=== PATIENT | female | born 1970 | race African-American/Black ===

== ENCOUNTER 2019-11-27 17:57 | Inpatient (IN) | payer OTHER, MEDICAID ==
[~2019-11-27] VITALS: Ht 165.1 cm; Wt 80.7 kg
[2019-11-27 18:05] VITALS: BP_SYST 138
--- NOTE | 2019-11-27 18:05 | NUR ---
PT BIB AMBULANCE FOR SEIZURE ACTIVITY TO DAY. PT HAS NO HISTORY OF SEIZURES. PT AAO AND SEIZURE-LIKE JERKING AND ROLLING HER EYES BACK. PT CURRENTLY DENIES PAIN.
--- NOTE | 2019-11-27 18:05 | NUR ---
Patient to ER bed 7 to gown for evaluation. Side rails up. ASSUMED CARE OF PT.
[2019-11-27] MEDS ORDERED: NACL 0.9% 1,000 ML IV ONE (18:10)
--- NOTE | 2019-11-27 18:10 | NUR ---
ER at bedside examining patient.
--- NOTE | 2019-11-27 18:25 | NUR ---
PT DISPLAYING SEIZURE-LIKE MOVEMENT WITH POSTURING, EYES ROLLING BACK, AND NECK JERKING. PT ALREADY IN SEIZURE PRECAUTIONS AND O2 WAS IN PLACE ON ARRIVAL. SEIZURE PADS PRESENT ON [facility]. NO INJURIES OCCURRED A RESULT OF INCIDENT. PT MEDICATED WITH IM ATIVAN 2MG PER DR. GOMEZ WHO WITNESSED SEIZURE. PT HAS NO IV ACCESS AND MD GOMEZ V.O./R.B. TO GIVE ATIVAN IM.
[2019-11-27] MEDS ORDERED: LORazepam 2 MG/ML VIAL IVP ONE (18:30)
[2019-11-27] MEDS ORDERED: LORazepam 2 MG/ML VIAL ONE (18:44)
[2019-11-27] MEDS ORDERED: IPRATROPIUM BROM 0.5 MG/2.5 ML VIAL.NEB (ATROVENT) INH ONE (18:45)
[2019-11-27] MEDS ORDERED: LORazepam 2 MG/ML VIAL IM ONE ×3 (18:45→19:15)
[2019-11-27] MEDS ORDERED: ALBUTEROL SULFATE 0.083% 2.5 MG/3 ML VIAL.NEB INH ONE (18:45)
--- NOTE | 2019-11-27 18:55 | NUR ---
PT AGAIN DISPLAYING SEIZURE-LIKE MOVEMENTS. AIRWAY PATENT NON REBREATHER IN PLACE AT [address] GOMEZ AT BEDSIDE. PT DISPLAYING JERKING MOVEMENTS AND POSTURING. EYES ROLLING BACK. PT MEDICATED WITH 4MG ATIVAN IM V.O./R.B. PER DR. GOMEZ. V/S STABLE.
[2019-11-27] MEDS ORDERED: cefTRIAXone 1 GM IVPB PREMIX 50 ML IV ONE (19:00)
[2019-11-27] MEDS ORDERED: AZITHROMYCIN 500 MG in NS 250 ML IV ONE (19:00)
--- NOTE | 2019-11-27 19:05 | NUR ---
PT AAO AND RESTING QUIETLY AT THIS TIME, IN NO DISTRESS.
--- NOTE | 2019-11-27 19:25 | NUR ---
CT SCAN COMPLETE
--- NOTE | 2019-11-27 19:36 | NUR ---
ADMIT ORDERS RECEIVED FROM DR. ARREOLA. ORDERS ENTERED PER RN. CALLED FOR BED ASSIGNMENT, WAITING FOR CALL BACK.
[2019-11-27 20:03] LABS: WHITE BLOOD COUNT (AUTO) 11.6 K/uL (4.8-10.8)
[2019-11-27 20:08] LABS: BILIRUBIN,URINE 1+ (NEGATIVE); BLOOD, URINE NEGATIVE (NEGATIVE); CLARITY/URINE CLEAR (CLEAR); COLOR,URINE YELLOW (YELLOW); GLUCOSE,URINE 3+ (NEGATIVE); KETONES,URINE 3+ (NEGATIVE); LEUKOCYTE ESTERASE ,URINE NEGATIVE (NEGATIVE); NITRITE, URINE NEGATIVE (NEGATIVE); PH,URINE 5.5 (5.0-8.0); PROTEIN URINE NEGATIVE (NEGATIVE); UROBILINOGEN,URINE 0.2 (0.2-1.0)
[2019-11-27 20:08] LABS: MEAN CORPUSCULAR HEMOGLOBIN 33 pg (27-31); MEAN CORPUSCULAR HGB CONC 30 % (32-36); MEAN CORPUSCULAR VOLUME 110 fL (79.0-98.0); PLATELET COUNT (AUTO) 144 K/uL (130-430)
[2019-11-27 20:11] LABS: HEMATOCRIT 15.2 % (36-48); HEMOGLOBIN 4.5 g/dL (12.0-16.0); RED BLOOD CELL COUNT(AUTO) 1.39 MIL/uL (4.2-6.2)
[2019-11-27 20:16] LABS: CALCIUM 8.6 mg/dL (8.4-11.0); CREATININE 1.35 mg/dL (0.55-1.30); POTASSIUM 4.8 mmol/L (3.5-5.1)
[2019-11-27 20:20] LABS: ALBUMIN 3.3 g/dL (3.4-4.8); PHENYTOIN (DILANTIN) 1.1 ug/mL (10.0-20.0); TOTAL BILIRUBIN 1.1 mg/dL (0.0-1.0)
[2019-11-27 20:21] LABS: BAND % (MANUAL) 2 % (0-6); BASOPHILS % (MANUAL) 0 % (0-2); CORRECTED WHITE BLOOD COUNT 10.2 K/uL (4.5-11.0); EOSINOPHILS % (MANUAL) 0 % (0-7); LYMPHOCYTES % (MANUAL) 34 % (20-46); MONOCYTES % (MANUAL) 7 % (0-11)
[2019-11-27 20:24] LABS: INR 1.3 (0.8-1.2); PROTHROMBIN TIME 12.7 SECS (9.5-12.5)
--- NOTE | 2019-11-27 20:30 | NUR ---
PT RESTING QUIETLY IN NO DISTRESS. V/S STABLE.
[2019-11-27] MEDS ORDERED: AZITHROMYCIN 500 MG/VIAL (ZITHROMAX) IV ONE (20:39)
[2019-11-27 20:44] LABS: WBC,URINE 0-3 /HPF (0-3)
[2019-11-27 20:45] LABS: BACTERIA,URINE FEW /HPF (None Seen); RBC,URINE 0-3 /HPF (0-3)
[2019-11-27] MEDS ORDERED: DEXTROSE 50% JECT 50 ML DISP.SYRIN IVP ONE (20:45)
[2019-11-27 20:46] LABS: CALCIUM OXALATE CRYSTALS,UR None Seen /HPF (None Seen); CALCIUM PHOSPHATE CRYSTALS,UR None Seen /HPF (None Seen); COARSE GRANULAR CASTS,URINE None Seen /LPF (None Seen); FINE GRANULAR CASTS,URINE None Seen /LPF (None Seen); HYALINE CASTS, URINE None Seen /LPF (None Seen); MUCUS,URINE None Seen /LPF (None Seen); OTHER CASTS, URINE None Seen /LPF (None Seen); OTHER CRYSTALS,URINE None Seen /HPF (None Seen); TRICHOMONAS,URINE None Seen /HPF (None Seen); TRIPLE PHOSPHATE CRYSTAL,UR None Seen /HPF (None Seen); URIC ACID CRYSTALS,URINE None Seen /HPF (None Seen); URINE AMORPHOUS PHOSPHATES None Seen /HPF (None Seen); URINE AMORPHOUS URATE None Seen /HPF (None Seen); WAXY CASTS,URINE None Seen /LPF (None Seen); YEAST,URINE Few /HPF (None Seen)
[2019-11-27 20:49] LABS: BARBITURATE, URINE NEGATIVE (NEG <=200); METHAMPHETAMINES SCREEN,URINE NEGATIVE (NEG <=500); URINE AMPHETAMINE NEGATIVE (NEG <=500)
[2019-11-27 20:50] LABS: BENZODIAZEPINE, URINE NEGATIVE (NEG <=150); CANNABINOID, URINE NEGATIVE (NEG <=50); COCAINE, URINE NEGATIVE (NEG <=150); OPIATE, URINE POSITIVE (NEG <=100); PHENCYCLIDINE SCREEN,URINE NEGATIVE (NEG <=25); URINE METHADONE NEGATIVE (NEG <=200)
[2019-11-27 20:51] LABS: UR TRICYCLIC ANTIDEPRESSANTS NEGATIVE (NEG <=300); URINE OXYCODONE SCREEN NEGATIVE (NEG <=100); URINE PROPOXYPHENE SCREEN NEGATIVE (NEG <=300)
--- NOTE | 2019-11-27 21:30 | NUR ---
ROOM ASSIGNMENT RECIEVED, PT TRANSFERRED TO TELEMETRY VIA JACOB ON TELE WITH RN.
--- NOTE | 2019-11-27 21:40 | NUR ---
WITH TH ADMISSION: The patient, COLE GODDARD, 49 y/o, F admitted by CHARY ARREOLA MD, with the diagnosis of Respiratory Failure , Pleural Effusion to room 104 B .
--- NOTE | 2019-11-27 21:50 | NUR ---
Patient will be admitted to care of MD. Admitted to TELE unit. Will go to room 104. Belongings list completed. Complete and up to date summary report printed. SBAR report to be given at bedside with opportunity for questions.
[2019-11-27 22:23] VITALS: BP_SYST 118
--- NOTE | 2019-11-27 22:53 | NUR ---
DR. REYES IS AWARE OF THE CONSULT:
[2019-11-27] MEDS ORDERED: ALBUTEROL MDI INHALATION 8 GM INH INH ONE (23:54)
[2019-11-27] MEDS ORDERED: ACETYLCYSTEINE 10% 4 ML VIAL (RT) INH ONE (23:54)
[2019-11-28] VITALS (7 sets, daily range): BP systolic 104–148
[2019-11-28] MEDS ORDERED: LORazepam 2 MG/ML VIAL IVP PRN
[2019-11-28] MEDS ORDERED: ALBUTEROL SULFATE 0.083% 2.5 MG/3 ML VIAL.NEB INH PRN
[2019-11-28] MEDS: INSULIN REGULAR, HUMAN 100 UNITS/ML, 10 ML VIAL (humuLIN R) SUBCUT PRN ×5 (00:24→21:20)
[2019-11-28] MEDS: D5NS 1,000 ML IV SCH ×3 (00:26→20:00)
[2019-11-28] MEDS ORDERED: HYDROcodone/ACETAMIN 5-325 MG TAB (NORCO/ VICODIN) PO PRN (00:30)
[2019-11-28] MEDS ORDERED: ACETAMINOPHEN 325 MG TABLET PO PRN (00:30)
[2019-11-28] MEDS ORDERED: HYDROcodone/ACETAMIN 10-325 MG TAB PO PRN (00:30)
[2019-11-28] MEDS ORDERED: ONDANSETRON HCL 4 MG/2 ML VIAL IVP PRN (00:30)
--- NOTE | 2019-11-28 00:50 | NUR ---
CALLED DR ARREOLA RE: HIGH SUGAR,TACHYCARDIA MD MADE AWARE THAT PATIENT'S BS AT 447, AND HEART RATE HAS SUSTAINED AT 135. MD ORDERED FOR ADDITIONAL 10 UNITS OF HUM R AND 1L NS BOLUS. WILL CARRY OUT ORDERS.
[2019-11-28] MEDS ORDERED: INSULIN REGULAR, HUMAN 100 UNITS/ML, 10 ML VIAL SUBCUT ONE (01:00)
[2019-11-28] MEDS ORDERED: NACL 0.9% 1,000 ML IV ONE ×2 (01:00→05:00)
--- NOTE | 2019-11-28 01:30 | NUR ---
ROUNDS PATIENT IN BED SLEEPING AT THIS TIME. NO S/S OF ACUTE DISTRESS NOTED. BREATHING EVEN AND UNLABORED. HOB RAISED. NASAL CANULA ATTACHED PROPERLY, ON 2L OF OXYGEN. IVF INFUSING WELL. SEIZURE PADS ATTACHED TO SIDE RAILS. BED ALARM ON. BED IS LOCKED AND AT LOWEST POSITION. WILL CONTINUE TO MONITOR.
[2019-11-28] MEDS: LORazepam 2 MG/ML VIAL IVP PRN ×3 (02:01→12:14)
[2019-11-28] MEDS ORDERED: PHEDM120 PO (02:23)
[2019-11-28] MEDS ORDERED: DOCU-144 PO (02:23)
[2019-11-28] MEDS ORDERED: POTA10TA15 PO (02:23)
[2019-11-28] MEDS ORDERED: ATEN-41 PO (02:23)
[2019-11-28] MEDS ORDERED: IBUP-1969 PO (02:23)
[2019-11-28] MEDS ORDERED: LISI-209 PO (02:23)
[2019-11-28] MEDS ORDERED: GABA-531 PO (02:23)
[2019-11-28] MEDS ORDERED: FURO-150 PO (02:23)
[2019-11-28] MEDS ORDERED: ERGO500020 PO (02:23)
[2019-11-28] MEDS ORDERED: HYDR-4274 PO (02:23)
[2019-11-28] MEDS ORDERED: HYDR2TAB4 PO (02:23)
[2019-11-28] MEDS ORDERED: GLIP10TA11 PO (02:23)
--- NOTE | 2019-11-28 02:30 | NUR ---
RT AT BEDSIDE/BIPAP/ TACHYCARDIA-AVIONICS SYSTEMS ENGINEER PATIENT HAS LABORED BREATHING, RT AT BEDSIDE GIVING BREATHING TREATMENT, RECEIVED ORDERS FROM DR ARREOLA TO HAVE PATIENT ON BIPAP, MAINTAIN SPO2 > 90, RT MADE AWARE, WILL CARRY OUT ORDERS. MD MADE AWARE THAT HEART RATE IS STILL HIGH, SUSTAINING AT 145 EVEN AFTER 1L NS BOLUS, MD ORDERED TO CALL AVIONICS SYSTEMS ENGINEER. AFTER THE PHONE CALL, RN FOUND OUT THAT NO CONSULT FOR CARDIO WAS ORDERED. WILL CALL MD AGAIN FOR CARDIO CONSULT.
--- NOTE | 2019-11-28 02:42 | NUR ---
PEARL CATH: # 16 FR Pearl catheter with 10 cc bulb inserted with use of sterile technique. Bulb inflated with 10 cc sterile water. Immediate return of 510 cc clear yellow urine noted. Bedside drainage bag placed below level of bladder. Urine sample collected and sent to lab at 0245. Pt tolerated procedure well.
[2019-11-28] MEDS: ALBUTEROL SULFATE 0.083% 2.5 MG/3 ML VIAL.NEB INH SCH ×6 (02:52→23:00)
[2019-11-28] MEDS: IPRATROPIUM BROM 0.5 MG/2.5 ML VIAL.NEB (ATROVENT) INH SCH ×6 (02:53→23:00)
[2019-11-28 03:06] LABS: BILIRUBIN,URINE NEGATIVE (NEGATIVE); BLOOD, URINE 1+ (NEGATIVE); CLARITY/URINE CLEAR (CLEAR); COLOR,URINE YELLOW (YELLOW); GLUCOSE,URINE 3+ (NEGATIVE); KETONES,URINE 3+ (NEGATIVE); LEUKOCYTE ESTERASE ,URINE NEGATIVE (NEGATIVE); NITRITE, URINE NEGATIVE (NEGATIVE); PROTEIN URINE NEGATIVE (NEGATIVE); UROBILINOGEN,URINE 0.2 (0.2-1.0)
--- NOTE | 2019-11-28 03:15 | NUR ---
ROUNDS PATIENT IN BED, RESTING, NO S/S OF ACUTE DISTRESS NOTED AT THIS TIME. HOB RAISED, BIPAP ATTACHED AND OPERATING. PATIENT TOLERATING WELL, SPO2 AT 98. IVF INFUSING WELL. PEARL ATTACHED, SECURED, AND DRAINING BY GRAVITY. BED ALARM ON. BED IS LOCKED AND AT LOWEST POSITION. WILL CONTINUE TO MONITOR.
[2019-11-28 03:34] LABS: BACTERIA,URINE FEW /HPF (None Seen); URINE AMORPHOUS URATE 1+ /HPF (None Seen); WBC,URINE 0-3 /HPF (0-3)
--- NOTE | 2019-11-28 03:42 | NUR ---
PAGED I PAGED DR. MAXWELL Prince I SPOKE WITH MATTHEW EDMOND
--- NOTE | 2019-11-28 03:45 | NUR ---
DR. ARREOLA CALLED BACK/MITTEN/CALLED FAMILY DR. ARREOLA MADE AWARE THAT THERE IS NO CARDIO CONSULT, MD ORDERED TO CALL Keri TORRE. ALSO MADE AWARE, PATIENT CONTINUOUSLY REMOVES BIPAP, MD ORDERED MITTEN, WILL CARRY OUT ORDERS. ATTEMPTED TO CALL PATIENT'S SISTERSTEFANIA AT [phone] TO INFORM ABOUT MITTENS BEING PLACED, NO ANSWER, VOICEMAIL LEFT. WILL ATTEMPT AGAIN LATER.
--- NOTE | 2019-11-28 04:03 | NUR ---
DR. MAXWELL Mora IS AWARE OF THE CONSULT: HE CALLED US BACK
--- NOTE | 2019-11-28 04:11 | NUR ---
CONSULT: CONSULT CALLED FOR DR. POLLARD I SPOKE WITH ELAINA EDMOND REASON FOR CONSULT: BREST CANCER REQUESTING CONSULT: DR. MAXWELL Prince SALES PRODUCT MANAGER PHONE NUMBER: [phone]
--- NOTE | 2019-11-28 04:12 | NUR ---
CONSULTATION PAGED/CALLED Reason for Consultation: TACHYCARDIA Person Who was Notified: COOKIE Consulting Physician: TYLER KAHN Hand Sprayer Specialty: Ordering Physician: CHARY KAHN
--- NOTE | 2019-11-28 04:16 | NUR ---
CONSULT: CONSULT CALLED FOR DR. CLEANING I SPOKE WITH DIPTI EDMOND REASON FOR CONSULT: PNEUMONIA REQUESTING CONSULT: DR. MAXWELL Prince MUSHROOM SPAWN MAKER PHONE NUMBER: [phone]
--- NOTE | 2019-11-28 04:42 | NUR ---
FAMILY MEMBER MADE AWARE OF SOFT MITTENS APPLIED AT THIS TIME.
--- NOTE | 2019-11-28 04:46 | NUR ---
PAGED I ERIC Saavedra AT [phone] I SPOKE WITH ELAINA EDMOND
--- NOTE | 2019-11-28 04:49 | NUR ---
DR ARREOLA CALLED BACK MADE AWARE OF EKG RESULTS, HEART RATE AT 152 BPM AT THIS TIME. ORDERED 1L NS BOLUS. WILL CARRY OUT ORDERS.
--- NOTE | 2019-11-28 06:04 | NUR ---
AGITATED/NEW IV PATIENT AGITATED, PRN ATIVAN ADMINISTERED. NEW IV SITE AT RIGHT FOREARM 22 GAUGE, PATENT, IVF INFUSING WELL.
--- NOTE | 2019-11-28 06:07 | NUR ---
CONSULT DR. CHAPARRITA Love. CALLED US BACK HE IS AWARE OF THE CONSULT
--- NOTE | 2019-11-28 06:39 | NUR ---
CLOSING NOTES PATIENT IN BED, RESTING AT THIS TIME, EYES CLOSED, APPEARS TO BE ASLEEP. NO S/S OF ACUTE DISTRESS AT THIS TIME. HOB RAISED, BIPAP ATTACHED AND OPERATING. IV SITE PATENT, IVF INFUSING WELL, NO SIGNS OF INFILTRATION OR INFECTION NOTED. SEIZURE PADS ATTACHED TO SIDE RAILS. PEARL ATTACHED, SECURED, AND DRAINING BY GRAVITY. ALL NEEDS MET THROUGHOUT SHIFT. FALL AND SAFETY PRECAUTIONS MAINTAINED THROUGHOUT SHIFT. WILL CONTINUE TO MONITOR.
--- NOTE | 2019-11-28 06:59 | NUR ---
PAGED PAGED CHARY KAHN AT [phone] SPOKE WITH KAYLAN.
--- NOTE | 2019-11-28 07:18 | NUR ---
Nutrition Update Reid Scale 13 noted. Pt admitted for Respiratory Failure, Pleural Effusion Diet: [facility] [place] BMI: 29.4 kg/m2 RD to follow per nutrition care standards.
--- NOTE | 2019-11-28 07:30 | NUR ---
OPENING NOTES: RECEIVED PATIENT FROM VACUUM BOTTLE ASSEMBLER NURSE. PATIENT IS ASLEEP LAYING DOWN IN BED. PATIENT IS TOLERATING OXYGEN ON BIPAP WITH SETTING OF IE: 10/5 AND FIO2: 40%. PATIENT IS ON BILATERAL MITTENS DUE TO PATIENT ATTEMPTING TO REMOVE BIPAP AND PATIENT BEING CONFUSED. NO SIGNS OF DECREASED CIRCULATION NOTED. IV SITE IS PATENT WITH NO SIGNS OF INFILTRATION NOTED. PEARL CATHETER INTACT AND DRAINING BY GRAVITY. PATIENT IN STABLE CONDITION. SAFETY, FALL, ASPIRATION AND SEIZURE PRECAUTIONS ARE IN PLACE. BED LOCKED IN LOWEST POSITION WITH CALL LIGHT IN REACH. WILL CONTINUE TO MONITOR PATIENT FOR ANY CHANGES.
[2019-11-28] MEDS: ACETYLCYSTEINE 10% 4 ML VIAL (RT) INH SCH ×4 (09:04→19:35)
[2019-11-28] MEDS: levETIRAcetam 500 MG in NS 100 ML IV SCH ×2 (09:17→21:04)
--- NOTE | 2019-11-28 09:50 | NUR ---
IV INFILTRATED: IV SITE BECAME INFILTRATED. IV CATHETER INTACT AND REMOVED WITH NO ACTIVE BLEEDING NOTED. NEW IV SITE IS RIGHT WRIST 20G INSERTED. ASEPTIC TECHNIQUE USED. PATIENT TOLERATED IT WELL. SUCCESSFUL AFTER ONE ATTEMPT. IV SITE IS PATENT WITH NO SIGNS OF INFILTRATION NOTED. WILL CONTINUE TO MONITOR.
--- NOTE | 2019-11-28 10:20 | NUR ---
RN ROUNDS: PATIENT IS LETHARGIC LAYING DOWN IN BED. PATIENT IS RESTLESS. PATIENT IS TOLERATING OXYGEN ON BIPAP WITH NO SIGNS OF DISTRESS OR SHORTNESS OF BREATH NOTED. IV SITE IS PATENT WITH NO SIGNS OF INFILTRATION NOTED. PATIENT IS ON BILATERAL MITTENS DUE TO PATIENT BEING CONFUSED AND ATTEMPTING TO TAKE OFF BIPAP. NO SIGNS OF DECREASED CIRCULATION NOTED. PATIENT IN STABLE CONDITION. WILL CONTINUE TO MONITOR PATIENT FOR ANY CHANGES.
[2019-11-28] MEDS ORDERED: EPOETIN ALFA 10,000 UNITS/ML VIAL SUBCUT ONE ×2 (11:15→17:00)
[2019-11-28] MEDS ORDERED: ENOXAPARIN SODIUM 40 MG/0.4 ML SYRINGE SUBCUT ONE (11:30)
--- NOTE | 2019-11-28 11:33 | NUR ---
SS NOTES/DCP: CAN CUTTER phoned pt's mother Lori Park @ [phone] for assessment. Demographic information verified (address: [address] [place] [address]). Pt is a 49 y/o female who was diagnosed with cancer 7 years ago. Pt is seeing Dr. Ruth Madsen of [facility]. Per mom, 4 months ago, pt started having difficulty breathing and received test tube drainage until 3 weeks ago when it was discontinued. Per mom, pt is currently living with her due to Covid-19. Pt needs help with ambulation and is dependent on bathing and cooking. Pt utilizes a walker and wheelchair when out in the community. Per mom, pt is not diagnosed with mental health and unknown if with history of substance use/abuse. Pt's source of income is her disability and pt handles her finances. Per mom, pt is a [facility] and pt signed her own DNR. Mom verbalized concern on the patient's bipap; transferred call to the nurse so she can explain better on what a bipap is. When discharged, mom will discuss with patient's Sayre MD in terms of placement. CM or SS will follow up if placement is needed. CAN CUTTER provided mother with unit's phone number.
[2019-11-28] MEDS: SOD FERRIC GLUC COMPLEX/SUC 125 MG in NS 100 ML IV SCH (12:14)
[2019-11-28] MEDS: THIAMINE HCL 100 MG in NS 50 ML IV SCH (12:14)
--- NOTE | 2019-11-28 12:49 | NUR ---
RN ROUNDS: PATIENT IS LETHARGIC BUT RESTLESS LAYING DOWN IN BED. PATIENT HAS MANAGED TO GET OUT OF THE MITTENS MULTIPLE TIMES. PRN ATIVAN GIVEN TO PATIENT TO HELP CALM HER DOWN. PATIENT IS TOLERATING OXYGEN ON BIPAP WITH NO SIGNS OF DISTRESS OR SHORTNESS OF BREATH NOTED. IV SITE IS PATENT WITH NO SIGNS OF INFILTRATION NOTED. PATIENT ON BILATERAL MITTENS DUE TO PATIENT ATTEMPTING TO PULL OF BIPAP. NO SIGNS OF DECREASED CIRCULATION NOTED. PATIENT IN STABLE CONDITION. WILL CONTINUE TO MONITOR PATIENT FOR ANY CHANGES.
--- NOTE | 2019-11-28 14:19 | NUR ---
Dc Planning: Called Maurice SORENSEN s/w Carri, epic radiant analyst to report pt clinical status for today inpatient approval. Carri will notified Caio, the assigned Cm for her to call me back. Addendum: 11/28/19 at 1539 by Octavio Ocasio RN >> Called back from Caio, I updated the pt's clinical status: low hgb 4.5 no blood transfusion/Jahova witness, not candidate for chemo therapy, tachycardia 130-99 bpm, on bipap 40%, RR22. Per Caio, will not transfer pt today, she will call [phone]/Jc singletaryt/Cleve to confirm today inpatient approval after she consults with her medical doctor. Caio # [phone].
--- NOTE | 2019-11-28 14:25 | NUR ---
RN ROUNDS: PATIENT IS ASLEEP LAYING DOWN IN BED. PATIENT IS ON BIPAP WITH NO SIGNS OF DISTRESS OR SHORTNESS OF BREATH NOTED. IV SITE IS PATENT WITH NO SIGNS OF INFILTRATION NOTED. PATIENT ON BILATERAL MITTENS WITH NO SIGNS OF DECREASED CIRCULATION NOTED. PATIENT IN STABLE CONDITION. WILL CONTINUE TO MONITOR PATIENT FOR ANY CHANGES.
[2019-11-28 15:54] LABS: MEAN CORPUSCULAR HEMOGLOBIN 33 pg (27-31)
[2019-11-28 16:01] LABS: TOTAL IRON BIND. CAPACITY 346 ug/dL (250-450)
[2019-11-28 16:08] LABS: POTASSIUM 3.4 mmol/L (3.5-5.1)
[2019-11-28 16:09] LABS: CALCIUM 7.9 mg/dL (8.4-11.0); CREATININE 1.05 mg/dL (0.55-1.30); TOTAL BILIRUBIN 0.8 mg/dL (0.0-1.0)
[2019-11-28 16:10] LABS: ALBUMIN 2.9 g/dL (3.4-4.8); C-REACTIVE PROTEIN QUANT 6.5 mg/dL (0-0.5); PHOSPHORUS 6.5 mg/dL (2.7-4.5)
--- NOTE | 2019-11-28 16:46 | NUR ---
RN ROUNDS: PATIENT IS ASLEEP LAYING DOWN IN BED. PATIENT IS TOLERATING OXYGEN ON BIPAP WITH NO SIGNS OF DISTRESS OR SHORTNESS OF BREATH NOTED. PATIENT IS ON BILATERAL MITTENS DUE TO PATIENT ATTEMPTING TO TAKE OFF BIPAP. NO SIGNS OF DECREASED CIRCULATION NOTED. IV SITE IS PATENT WITH NO SIGNS OF INFILTRATION NOTED. PATIENT IN STABLE CONDITION. WILL CONTINUE TO MONITOR PATIENT FOR ANY CHANGES.
[2019-11-28] MEDS: PIPERACILLIN/TAZO 2.25G/DEX-IS 50 ML IV SCH (17:12)
[2019-11-28 17:22] LABS: MEAN CORPUSCULAR HGB CONC 31 % (32-36); MEAN CORPUSCULAR VOLUME 106 fL (79.0-98.0); PLATELET COUNT (AUTO) 134 K/uL (130-430); RED CELL DISTRIBUTION WIDTH 26.3 % (9.0-15.0); WHITE BLOOD COUNT (AUTO) 11.4 K/uL (4.8-10.8)
[2019-11-28 17:29] LABS: RED BLOOD CELL COUNT(AUTO) 1.21 MIL/uL (4.2-6.2)
[2019-11-28 17:31] LABS: HEMATOCRIT 12.8 % (36-48)
[2019-11-28 18:02] LABS: BILIRUBIN,URINE 1+ (NEGATIVE); BLOOD, URINE 3+ (NEGATIVE); CLARITY/URINE SL CLOUDY (CLEAR); COLOR,URINE YELLOW (YELLOW); GLUCOSE,URINE 3+ (NEGATIVE); KETONES,URINE 1+ (NEGATIVE); LEUKOCYTE ESTERASE ,URINE NEGATIVE (NEGATIVE); NITRITE, URINE NEGATIVE (NEGATIVE); PROTEIN URINE 2+ (NEGATIVE); UROBILINOGEN,URINE 0.2 (0.2-1.0)
[2019-11-28 18:08] LABS: BACTERIA,URINE FEW /HPF (None Seen); RBC,URINE >100 /HPF (0-3); URIC ACID CRYSTALS,URINE 30-50 /HPF (None Seen); WBC,URINE 0-3 /HPF (0-3)
[2019-11-28 18:12] LABS: BAND % (MANUAL) 5 % (0-6); BASOPHILS % (MANUAL) 0 % (0-2); EOSINOPHILS % (MANUAL) 0 % (0-7); LYMPHOCYTES % (MANUAL) 36 % (20-46); MONOCYTES % (MANUAL) 12 % (0-11)
[2019-11-28 18:13] LABS: ERYTHROCYTE SEDIMENTATION RATE 115 MM/HR (0-20)
--- NOTE | 2019-11-28 18:44 | NUR ---
CLOSING NOTES: PATIENT IS ASLEEP LAYING DOWN IN BED. PATIENT IS TOLERATING OXYGEN ON BIPAP WITH SETTING OF IE: 10/5 AND FIO2: 40%. PATIENT IS ON BILATERAL MITTENS DUE TO PATIENT ATTEMPTING TO REMOVE BIPAP AND PATIENT BEING CONFUSED. NO SIGNS OF DECREASED CIRCULATION NOTED. IV SITE IS PATENT WITH NO SIGNS OF INFILTRATION NOTED. PEARL CATHETER INTACT AND DRAINING BY GRAVITY. PATIENT IN STABLE CONDITION. SAFETY, FALL, ASPIRATION AND SEIZURE PRECAUTIONS REMAINED IN PLACE THROUGHOUT THE SHIFT. BED LOCKED IN LOWEST POSITION WITH CALL LIGHT IN REACH. WILL ENDORSE PATIENT CARE TO ONCOMING MUSIC THERAPY TEACHER NURSE.
[2019-11-28] MEDS ORDERED: cefTRIAXone 1 GM IVPB PREMIX 50 ML IV SCH (21:00)
[2019-11-28] MEDS: AZITHROMYCIN 500 MG in NS 250 ML IV SCH (22:07)
[2019-11-29] MEDS: PIPERACILLIN/TAZO 2.25G/DEX-IS 50 ML IV SCH ×3 (00:23→12:13)
[2019-11-29] MEDS: ALBUTEROL SULFATE 0.083% 2.5 MG/3 ML VIAL.NEB INH SCH ×6 (03:00→23:30)
[2019-11-29] MEDS: IPRATROPIUM BROM 0.5 MG/2.5 ML VIAL.NEB (ATROVENT) INH SCH ×6 (03:00→23:30)
[2019-11-29 04:48] VITALS: BP_SYST 166
--- NOTE | 2019-11-29 04:54 | NUR ---
HR in the 150s. monitoring tech showing SVT. Notfied Dr. Abby Faulkner. Received order to administer Adenosine IVP.
[2019-11-29] MEDS ORDERED: ADENOSINE 6MG/2ML VIAL IVP ONE ×2 (05:15)
[2019-11-29] MEDS: D5NS 1,000 ML IV SCH ×2 (05:37→19:24)
--- NOTE | 2019-11-29 05:52 | NUR ---
Checked BP. Pushed 6mg of Adenosine. HR remains in the 150s. Rechecked BP. Then pushed 12 mg Adenosine. Rechecked BP. HR now 110. Rechecked BP.
[2019-11-29 05:53] VITALS: BP_SYST 139
[2019-11-29] MEDS: INSULIN REGULAR, HUMAN 100 UNITS/ML, 10 ML VIAL (humuLIN R) SUBCUT PRN ×4 (06:49→21:19)
[2019-11-29 07:13] LABS: BASOPHILS # (AUTO) 0.1 K/uL (0.0-0.2); BASOPHILS % (AUTO) 0.8 % (0.0-2.0); EOSINOPHILS % (AUTO) 0.4 % (0.0-4.0); LYMPHOCYTES # (AUTO) 2.6 K/uL (1.0-5.5); LYMPHOCYTES % (AUTO) 25.7 % (20.5-51.5); MEAN CORPUSCULAR HEMOGLOBIN 33 pg (27-31); MEAN CORPUSCULAR HGB CONC 31 % (32-36); MEAN CORPUSCULAR VOLUME 106 fL (79.0-98.0); MONOCYTES # (AUTO) 1.2 K/uL (0.0-1.0); MONOCYTES % (AUTO) 12.2 % (1.7-9.3); NEUTROPHILS # (AUTO) 6.2 K/uL (1.8-7.7); PLATELET COUNT (AUTO) 128 K/uL (130-430); RED CELL DISTRIBUTION WIDTH 26.5 % (9.0-15.0); WHITE BLOOD COUNT (AUTO) 10.1 K/uL (4.8-10.8)
[2019-11-29] MEDS: ACETYLCYSTEINE 10% 4 ML VIAL (RT) INH SCH ×4 (07:34→19:30)
[2019-11-29 08:00] VITALS: BP_SYST 120
--- NOTE | 2019-11-29 08:00 | NUR ---
initial notes rec patient asleep arousable to stimuli but confused. on bipap machine , no sob noted. resp easy and unlabored. bed to the lowest position and side rails up and locked. bed close to the nurses station. will continue to monitor patient. kathe restains in place, padded rails in place. will continue to monitor patient.
[2019-11-29 08:13] LABS: C-REACTIVE PROTEIN QUANT 7.6 mg/dL (0-0.5); CREATININE 0.91 mg/dL (0.55-1.30); POTASSIUM 3.6 mmol/L (3.5-5.1)
[2019-11-29 08:57] LABS: RED BLOOD CELL COUNT(AUTO) 1.23 MIL/uL (4.2-6.2)
[2019-11-29 09:05] LABS: HEMATOCRIT 13.1 % (36-48); HEMOGLOBIN 4.1 g/dL (12.0-16.0); NEUTROPHILS % (AUTO) 60.9 % (40.0-70.0)
[2019-11-29 09:11] LABS: FOLATE (FOLIC ACID) 7.4 ng/mL (>3.0)
[2019-11-29] MEDS: levETIRAcetam 500 MG in NS 100 ML IV SCH ×2 (10:18→20:59)
[2019-11-29] MEDS: THIAMINE HCL 100 MG in NS 50 ML IV SCH (10:18)
[2019-11-29] MEDS: EPOETIN ALFA 10,000 UNITS/ML VIAL SUBCUT SCH (10:19)
[2019-11-29] MEDS: ENOXAPARIN SODIUM 40 MG/0.4 ML SYRINGE SUBCUT SCH (10:20)
[2019-11-29 10:22] LABS: ERYTHROCYTE SEDIMENTATION RATE 114 MM/HR (0-20)
--- NOTE | 2019-11-29 11:00 | NUR ---
rounds thoracentesis sone at bedside by radiologist.
[2019-11-29] MEDS: SOD FERRIC GLUC COMPLEX/SUC 125 MG in NS 100 ML IV SCH (11:50)
[2019-11-29 12:16] VITALS: BP_SYST 113
[2019-11-29] MEDS ORDERED: LOSARTAN POTASSIUM 25 MG TABLET PO ONE (13:48)
[2019-11-29] MEDS ORDERED: METOPROLOL TARTRATE 25 MG TABLET PO ONE (14:00)
[2019-11-29] MEDS ORDERED: NEPHROVITE, (FOLIC ACID/VITAMIN B COMP W-C 1 TAB) PO ONE (14:00)
[2019-11-29 15:54] LABS: SOURCE/TYPE ,BODY FLUID THORACENTESIS
[2019-11-29 15:55] LABS: APPEARANCE,SPUN,BODY FLUID CLEAR (CLEAR); BF APPEARANCE UNSPUN HAZY (CLEAR); BODY FLUID COLOR YELLOW (LT YELLOW); BODY FLUID SOURCE/ TYPE PLEURAL; BODY FLUID TOTAL VOLUME 1075 mL; MONOCYTES,BODY FLUID 74 %; NEUTROPHIL, BODY FLUID 26 %; RBC, BODY FLUID 615 /uL; WBC, BODY FLUID 189 /uL
[2019-11-29 16:13] VITALS: BP_SYST 141
[2019-11-29] MEDS ORDERED: ENALAPRILAT DIHYDRATE 1.25 MG/ML VIAL IVP PRN (18:00)
--- NOTE | 2019-11-29 18:30 | NUR ---
rounds r.t was called and switch back the patient to bipap. satuartion back to 96 %. seen by dr lorie duenas and mentioned that patient is drowsy and unable to take meds. resting comfortably and no sob noted. bed to the lowest position and pt close to the nurses station. no hypo hyperglycmeic reaction noted.
--- NOTE | 2019-11-29 19:20 | NUR ---
RECEIVED REPORT FROM LEXIE LUDWIG AT BEDSIDE. Pt ON A BI-PAP W/ SETTINGS- FIO2 40%, , I/E-11/19. OPENS EYES TO HER NAME, NONVERBAL. NAD NOTED.
[2019-11-29] MEDS: LEVOFLOXACIN 250 MG/D5W 50 ML IV SCH (19:23)
[2019-11-29 20:00] VITALS: BP_SYST 120
[2019-11-29] MEDS: AZITHROMYCIN 500 MG in NS 250 ML IV SCH (20:58)
[2019-11-29] MEDS: METOPROLOL TARTRATE 25 MG TABLET PO SCH (21:00)
[2019-11-29] MEDS ORDERED: INSULIN GLARGINE 100 UNITS/ML 10 ML VIAL SUBCUT SCH (21:00)
--- NOTE | 2019-11-29 22:00 | NUR ---
MED PASS DONE, PT TOLERATED CRUSHED PO MEDS, TYLENOL GIVEN FOR APPARENT DISCOMFORT, Pt, FIDGETY. RESP ASSISTED W/ BI-PAP ALARM. WILL CONT TO MONITOR.
[2019-11-30 00:06] VITALS: BP_SYST 134
--- NOTE | 2019-11-30 01:44 | NUR ---
Consultation Paged Reason for Consultation: DM Uncontrolled Was consult called: Y Person who was notified: Hugh Consulting Physician: Dr. Rojas Optical Instrument Assembler Ordering Physician: Lexa Hernández
[2019-11-30] MEDS: LORazepam 2 MG/ML VIAL IVP PRN (01:52)
[2019-11-30] MEDS: D5NS 1,000 ML IV SCH ×3 (02:00→23:23)
--- NOTE | 2019-11-30 02:00 | NUR ---
Pt W/ CONTINUED, RESTLESSNESS, AND PULLING ON TUBES, MEDICATED W/ ATIVAN 1 MG IVP. REDIRECTED, MADE COMFORTABLE. WILL CONT TO MONITOR FOR SAFETY.
--- NOTE | 2019-11-30 04:00 | NUR ---
Pt W/ CONTINUED, RESTLESSNESS, AND PULLING ON TUBES. Pt NODS WHEN ASKED WHAT IS WRONG, ASKED FOR WATER, DURING MOUTH CARE. TOLERATED COOL PO WATER INTAKE W/O COUGHING OR ASPIRATING. RT ASSISTED W/ REMOVAL AND ADJUSTING BI-PAP MASK ON CORRECTLY. ATIVAN MEDICATION EFFECTIVE FOR A SHORT 1.5 HOURS. Pt HAS REQUIRED CONT. REDIRECTION THE ENTIRE SHIFT IN A 1:1 CARE. REPOSITIONED, AND MADE COMFORTABLE. WILL CONT TO MONITOR FOR SAFETY.
--- NOTE | 2019-11-30 06:00 | NUR ---
Pt WITH CONT. REDIRECTION AND REQUIRING 1:1 CARE NEEDS FOR SAFETY. REPOSITIONED, AND MADE COMFORTABLE. WILL CONT TO MONITOR FOR SAFETY.
[2019-11-30 06:58] LABS: BASOPHILS # (AUTO) 0.1 K/uL (0.0-0.2); BASOPHILS % (AUTO) 0.6 % (0.0-2.0); EOSINOPHILS # (AUTO) 0.1 K/uL (0.0-0.4); EOSINOPHILS % (AUTO) 0.7 % (0.0-4.0); LYMPHOCYTES # (AUTO) 1.7 K/uL (1.0-5.5); LYMPHOCYTES % (AUTO) 19.3 % (20.5-51.5); MEAN CORPUSCULAR HEMOGLOBIN 33 pg (27-31); MEAN CORPUSCULAR HGB CONC 31 % (32-36); MEAN CORPUSCULAR VOLUME 106 fL (79.0-98.0); MONOCYTES # (AUTO) 1.1 K/uL (0.0-1.0); MONOCYTES % (AUTO) 12.6 % (1.7-9.3); NEUTROPHILS # (AUTO) 5.8 K/uL (1.8-7.7); NEUTROPHILS % (AUTO) 66.8 % (40.0-70.0); PLATELET COUNT (AUTO) 113 K/uL (130-430); RED CELL DISTRIBUTION WIDTH 26.7 % (9.0-15.0); WHITE BLOOD COUNT (AUTO) 8.7 K/uL (4.8-10.8)
--- NOTE | 2019-11-30 07:15 | NUR ---
REPORT GIVEN TO AM RN AT BEDSIDE. Pt HAS REQUIRED CONT. REDIRECTION THE ENTIRE SHIFT IN A 1:1 CARE. CONTINUES TO BE RESTLESS, REMOVING COVERS, MITTENS ON BILATERAL HANDS FOR SAFETY. ENDORSED TO AM RN.
[2019-11-30 07:17] LABS: RED BLOOD CELL COUNT(AUTO) 1.19 MIL/uL (4.2-6.2)
[2019-11-30 07:19] LABS: HEMATOCRIT 12.5 % (36-48); HEMOGLOBIN 3.9 g/dL (12.0-16.0)
[2019-11-30] MEDS: INSULIN REGULAR, HUMAN 100 UNITS/ML, 10 ML VIAL (humuLIN R) SUBCUT PRN ×2 (07:31→12:25)
--- NOTE | 2019-11-30 07:35 | NUR ---
PAGED PAGED CHARY KAHN AT [phone] SPOKE WITH
[2019-11-30] MEDS: IPRATROPIUM BROM 0.5 MG/2.5 ML VIAL.NEB (ATROVENT) INH SCH ×5 (07:42→23:06)
[2019-11-30] MEDS: ALBUTEROL SULFATE 0.083% 2.5 MG/3 ML VIAL.NEB INH SCH ×6 (07:42→23:05)
[2019-11-30] MEDS: ACETYLCYSTEINE 10% 4 ML VIAL (RT) INH SCH ×5 (07:43→19:35)
[2019-11-30 07:54] LABS: C-REACTIVE PROTEIN QUANT 8.1 mg/dL (0-0.5); CALCIUM 8.1 mg/dL (8.4-11.0); CREATININE 0.77 mg/dL (0.55-1.30); POTASSIUM 3.1 mmol/L (3.5-5.1)
[2019-11-30 07:59] LABS: ERYTHROCYTE SEDIMENTATION RATE 101 MM/HR (0-20)
[2019-11-30 08:00] VITALS: BP_SYST 156
--- NOTE | 2019-11-30 08:55 | NUR ---
RT NOTES Pt was done w/ breakfast, placed back on bipap w/ same settings. Protecta gel in placed.
[2019-11-30] MEDS: ENOXAPARIN SODIUM 40 MG/0.4 ML SYRINGE SUBCUT SCH (09:00)
--- NOTE | 2019-11-30 09:50 | NUR ---
RT NOTES Per doctor's order, took pt off of bipap and placed on 2L NC. No adverse reactions noted. will monitor pt.
[2019-11-30] MEDS: levETIRAcetam 500 MG in NS 100 ML IV SCH ×2 (10:06→22:43)
[2019-11-30] MEDS: THIAMINE HCL 100 MG in NS 50 ML IV SCH (10:06)
[2019-11-30] MEDS: EPOETIN ALFA 10,000 UNITS/ML VIAL SUBCUT SCH (10:07)
[2019-11-30] MEDS: METOPROLOL TARTRATE 25 MG TABLET PO SCH ×2 (10:08→21:23)
[2019-11-30] MEDS: NEPHROVITE, (FOLIC ACID/VITAMIN B COMP W-C 1 TAB) PO SCH (10:10)
[2019-11-30] MEDS: LOSARTAN POTASSIUM 25 MG TABLET PO SCH (10:11)
[2019-11-30 12:14] VITALS: BP_SYST 158
[2019-11-30] MEDS: SOD FERRIC GLUC COMPLEX/SUC 125 MG in NS 100 ML IV SCH (12:20)
[2019-11-30] MEDS ORDERED: DEXTROSE 50% JECT 50 ML DISP.SYRIN IVP PRN (15:15)
[2019-11-30 16:41] VITALS: BP_SYST 150
[2019-11-30] MEDS ORDERED: KCL 20 mEq in 100 mL (PREMIX) 100 ML IV ONE (17:30)
[2019-11-30] MEDS: INSULIN LISPRO SLIDING SCALE 100 UNITS/ML VIAL (humaLOG) SUBCUT PRN ×2 (17:49→21:27)
--- NOTE | 2019-11-30 19:45 | NUR ---
ROUNDS PATIENT RESTING COMFORTABLY IN BED, NOT IN DISTRESS, VITALS STABLE. NO SIGNS OF ANY PAIN AND DISCOMFORT AT THIS TIME. ASSESSMENT DONE AND DOCUMENTED. SEE FLOWSHEET. NEEDS ATTENDED TO. SAFETY AND FALL MEASURES IN PLACED. BED IN LOW AND LOCKED POSITION. BED ALARM ON. CALL LIGHT PLACED WITHIN REACH.
--- NOTE | 2019-11-30 19:47 | NUR ---
Endorsement to [facility], night team. Twenty gauge x2 sticks unsuccessful. Pop Dumont RN
[2019-11-30 20:00] VITALS: BP_SYST 152
[2019-11-30] MEDS ORDERED: INSULIN GLARGINE 100 UNITS/ML 10 ML VIAL SUBCUT SCH (21:00)
--- NOTE | 2019-11-30 21:25 | NUR ---
MEDICATIONS DUE MEDICATIONS GIVEN SCHEDULED, CRUSHED WITH APPLESAUCE. TOLERATED WELL.
[2019-11-30] MEDS: LEVOFLOXACIN 250 MG/D5W 50 ML IV SCH (21:54)
[2019-11-30] MEDS: AZITHROMYCIN 500 MG in NS 250 ML IV SCH (23:22)
--- NOTE | 2019-12-01 00:14 | NUR ---
PATIENT RESTING: Patient resting quietly. No acute distress noted. Vital signs within normal range.
[2019-12-01 01:06] VITALS: BP_SYST 140
--- NOTE | 2019-12-01 02:14 | NUR ---
ROUNDS PATIENT ASLEEP AT THIS TIME, WITH OCCASIONAL RESTLESSNESS, VITALS STABLE. WILL CONTINUE TO MONITOR.
[2019-12-01] MEDS: ALBUTEROL SULFATE 0.083% 2.5 MG/3 ML VIAL.NEB INH SCH ×6 (03:04→23:42)
[2019-12-01] MEDS: IPRATROPIUM BROM 0.5 MG/2.5 ML VIAL.NEB (ATROVENT) INH SCH ×6 (03:05→23:42)
[2019-12-01 06:15] LABS: MEAN CORPUSCULAR HEMOGLOBIN 32 pg (27-31); MEAN CORPUSCULAR HGB CONC 30 % (32-36); MEAN CORPUSCULAR VOLUME 108 fL (79.0-98.0); PLATELET COUNT (AUTO) 117 K/uL (130-430); RED CELL DISTRIBUTION WIDTH 26.4 % (9.0-15.0); WHITE BLOOD COUNT (AUTO) 9.2 K/uL (4.8-10.8)
[2019-12-01 06:18] LABS: RED BLOOD CELL COUNT(AUTO) 1.25 MIL/uL (4.2-6.2)
[2019-12-01 06:31] LABS: HEMATOCRIT 13.5 % (36-48)
[2019-12-01] MEDS: INSULIN LISPRO SLIDING SCALE 100 UNITS/ML VIAL (humaLOG) SUBCUT PRN ×4 (06:41→20:35)
[2019-12-01 07:19] LABS: ERYTHROCYTE SEDIMENTATION RATE 92 MM/HR (0-20)
[2019-12-01 07:20] LABS: C-REACTIVE PROTEIN QUANT 8.2 mg/dL (0-0.5); CALCIUM 7.5 mg/dL (8.4-11.0); CREATININE 0.72 mg/dL (0.55-1.30); POTASSIUM 3.7 mmol/L (3.5-5.1)
[2019-12-01] MEDS: ACETYLCYSTEINE 10% 4 ML VIAL (RT) INH SCH ×4 (07:30→20:23)
[2019-12-01] MEDS: levETIRAcetam 500 MG in NS 100 ML IV SCH ×2 (08:49→20:26)
[2019-12-01 08:50] VITALS: BP_SYST 162
[2019-12-01] MEDS: EPOETIN ALFA 10,000 UNITS/ML VIAL SUBCUT SCH (08:52)
[2019-12-01] MEDS: THIAMINE HCL 100 MG in NS 50 ML IV SCH (08:52)
[2019-12-01] MEDS: NEPHROVITE, (FOLIC ACID/VITAMIN B COMP W-C 1 TAB) PO SCH (08:52)
[2019-12-01] MEDS: ENOXAPARIN SODIUM 40 MG/0.4 ML SYRINGE SUBCUT SCH (08:53)
[2019-12-01] MEDS: METOPROLOL TARTRATE 25 MG TABLET PO SCH ×2 (08:54→20:28)
[2019-12-01] MEDS: LOSARTAN POTASSIUM 25 MG TABLET PO SCH (08:54)
[2019-12-01 08:59] LABS: BASOPHILS % (MANUAL) 0 % (0-2); CORRECTED WHITE BLOOD COUNT 7.4 K/uL (4.5-11.0); EOSINOPHILS % (MANUAL) 0 % (0-7); LYMPHOCYTES % (MANUAL) 29 % (20-46); MONOCYTES % (MANUAL) 8 % (0-11)
[2019-12-01 10:30] VITALS: BP_SYST 158
[2019-12-01 11:35] VITALS: BP_SYST 158
[2019-12-01] MEDS: SOD FERRIC GLUC COMPLEX/SUC 125 MG in NS 100 ML IV SCH (11:43)
[2019-12-01] MEDS: D5NS 1,000 ML IV SCH (13:27)
[2019-12-01 16:38] VITALS: BP_SYST 149
[2019-12-01] MEDS: LEVOFLOXACIN 250 MG/D5W 50 ML IV SCH (17:10)
[2019-12-01] MEDS: 0.45% NACL 1,000 ML IV SCH (18:28)
--- NOTE | 2019-12-01 19:19 | NUR ---
Handoff report with night team registered nurses, Yahaira. Pop Dumont RN
--- NOTE | 2019-12-01 19:20 | NUR ---
Initial note: Received report from félix RN. Patient is resting in bed. No acute distress. Tolerating 2L NC. IV site to right wrist patent and intact, no infiltration. Luna catheter draining yellow urine to gravity. Bilateral mittens in place per MD order, skin and circulation WNL. Safety, fall, seizure precautions in place. Bed locked in lowest position, side rails raised, bed alarm on. Room is close to nurses' station. Will continue with plan of care.
[2019-12-01 20:12] VITALS: BP_SYST 154
[2019-12-01] MEDS: INSULIN GLARGINE 100 UNITS/ML 10 ML VIAL SUBCUT SCH (20:31)
--- NOTE | 2019-12-01 21:09 | NUR ---
Spoke with sister: Patient's sister/person to notify Lori Ahmadi called nursing station, then called patient's phone to speak with patient. Miguelina then spoke with this RN. Per Lori, she doesn't want patient to get too many phone calls so patient can rest more. Only Lori and Lori's son Alan (allowed to call once a day per Lori) may call patient.
[2019-12-01] MEDS: metroNIDAZOLE 500 mg/NS 100 ML IV SCH (22:30)
--- NOTE | 2019-12-01 23:27 | NUR ---
Pain: Patient complained of pain, unable to provide rating from scale of 1 to 10 d/t current mental status. Patient's pain is 6 out of 10 per FLACC scale. Kim 5-325 indicated. Medication administered crushed with applesauce. Patient tolerated well. Call light is with patient. Will continue to monitor.
[2019-12-02 00:14] VITALS: BP_SYST 131
[2019-12-02] MEDS: IPRATROPIUM BROM 0.5 MG/2.5 ML VIAL.NEB (ATROVENT) INH SCH ×4 (02:19→15:47)
[2019-12-02] MEDS: ALBUTEROL SULFATE 0.083% 2.5 MG/3 ML VIAL.NEB INH SCH ×4 (02:19→15:47)
--- NOTE | 2019-12-02 03:30 | NUR ---
Stool sample: Patient had a BM. Incontinence care rendered, patient tolerated well. Stool sample for occult blood collected per MD order. Sample sent to lab.
[2019-12-02] MEDS: 0.45% NACL 1,000 ML IV SCH ×2 (06:25→14:15)
[2019-12-02] MEDS: INSULIN LISPRO SLIDING SCALE 100 UNITS/ML VIAL (humaLOG) SUBCUT PRN ×4 (06:31→23:25)
[2019-12-02] MEDS: INSULIN Lispro 100 UNITS/ML VIAL (humaLOG) SUBCUT SCH ×3 (06:33→17:14)
--- NOTE | 2019-12-02 06:40 | NUR ---
Closing note: Patient is resting in bed. No acute distress. Tolerating 2L NC. IV site to right wrist patent and intact. Luna catheter draining well to gravity. All needs met. Safety, fall, seizure precautions in place. Will endorse care to dayshift RN.
[2019-12-02] MEDS: ACETYLCYSTEINE 10% 4 ML VIAL (RT) INH SCH ×3 (07:23→15:48)
[2019-12-02 08:10] VITALS: BP_SYST 151
[2019-12-02] MEDS: LOSARTAN POTASSIUM 25 MG TABLET PO SCH (08:43)
[2019-12-02] MEDS: NEPHROVITE, (FOLIC ACID/VITAMIN B COMP W-C 1 TAB) PO SCH (08:43)
[2019-12-02] MEDS: METOPROLOL TARTRATE 25 MG TABLET PO SCH ×2 (08:43→23:07)
[2019-12-02] MEDS: ENOXAPARIN SODIUM 40 MG/0.4 ML SYRINGE SUBCUT SCH (08:45)
[2019-12-02] MEDS: metroNIDAZOLE 500 mg/NS 100 ML IV SCH ×2 (08:46→23:45)
[2019-12-02] MEDS: THIAMINE HCL 100 MG in NS 50 ML IV SCH (08:46)
[2019-12-02] MEDS: levETIRAcetam 500 MG in NS 100 ML IV SCH ×2 (08:46→23:45)
[2019-12-02] MEDS: EPOETIN ALFA 10,000 UNITS/ML VIAL SUBCUT SCH (08:53)
--- NOTE | 2019-12-02 09:00 | NUR ---
Patient has less urine output , milky sediment from lopez catheter aspirate and flush with 100 cc normal saline urine output came out dark tea colored 500 cc then clamp will open in 2 hours to avoid sudden volume loss , denies any pain , will monitor , Dr. Rice informed will informed will monitor., repositioned.
--- NOTE | 2019-12-02 10:57 | NUR ---
DC PLANNING Earlier this am spoke with Dr Faulkner regarding plan. States pt stable to transfer to contracted hospital Tele via [facility]. Called & spoke with sister Lori Park, ph [phone], agreeable with transfer to [facility] hospital prefers [facility], her oncologist is there. Order & pt info was faxed to [facility]. Called & spoke with [place] victorino Pennington, ph [phone], & informed of order. States will work on transfer , will look for bed @ [facility]. Ordered CD. Updated pt's nurse.
[2019-12-02 11:00] VITALS: BP_SYST 132
[2019-12-02] MEDS: SOD FERRIC GLUC COMPLEX/SUC 125 MG in NS 100 ML IV SCH (12:25)
--- NOTE | 2019-12-02 12:30 | NUR ---
Rounds Patient is awake lethargic answer simple question denies any pain , with good urine output , oxygen saturation 98% head of bed semi fowlers with poor appetite,assisted in feeding,,spoke to sister Lori informed regarding possible transfer to [facility] hospital and agreeable patient aware.
--- NOTE | 2019-12-02 13:10 | NUR ---
Spoke to Dr. Kaushik Lindquist , needs to dictate discharge summary for transfer to [place].
[2019-12-02 14:00] VITALS: BP_SYST 139
--- NOTE | 2019-12-02 14:14 | NUR ---
Spoke to case managed from [facility] requesting for COVID Test
--- NOTE | 2019-12-02 14:38 | NUR ---
DC PLANNING Received msg from [facility] @ [facility] need DC Summary faxed before can accept pt. Faxed DC Summary, fax [phone]. Called & spoke with Cathleen @ [facility], ph [phone], states is working with [facility] & he is working on transfer to [facility], will give him msg to call me when avail. Addendum: 12/02/19 at 1629 by Mariaa Torres RN Have not received call from [facility]. Called & spoke with [facility] marketing information analyst Bernardo Love, ph [phone], states authorizing pt to stay here today [facility] stating not stable. Will fu tomorrow. Informed CM not here over the weekend to call nursing station, has direct nsg station#.
--- NOTE | 2019-12-02 15:15 | NUR ---
Endorsed patient to [facility] for continuity of care moved to ROOM 118B PUI after Covid 19 test taken while awaiting for result., sister Lori was informed regarding hold for discharge per Richards.
--- NOTE | 2019-12-02 17:47 | NUR ---
Dietitian Recommendations * Recommend continue [facility] Diet * Recommend provide Glucerna TID with meals. Glucerna TID will provide additional of 660 kcal and 30 g protein to optimize pt's nutritional intake. Please see Nutrition Assessment for details. EP,RD
[2019-12-02] MEDS: LEVOFLOXACIN 250 MG/D5W 50 ML IV SCH (18:18)
--- NOTE | 2019-12-02 19:03 | NUR ---
CLOSING NOTES: HOURLY ROUNDING DONE. NO ACUTE DISTRESS NOTED. NO ACUTE PAIN NOTED. PATIENT IS LYING IN BED COMFORTABLY. WILL ENDORSE TO EXECUTIVE COMMUNICATIONS MANAGER FOR FOLLOW-UP.
--- NOTE | 2019-12-02 19:30 | NUR ---
initial notes: pt is resting in bed. no pain, not distress, pt bed rails is padded for sz precaution. ask pt to do deep breathing form the door entrance. pt response. bed is lock and low. sia monitor.
--- NOTE | 2019-12-02 22:15 | NUR ---
NOTES: pt is awake, alert, confused. on bed. dyspneic. no pain, stable vital sign. on o2 2l via nc. ivf infusing to right fore arm gauge 20- intact and patent. pt has lopez catheter draining dark black urine. clean pt , change chux and reposition. safety precaution i n place. padded side rails up for sz precaution. low bed position. bed alarm on. HOB is up.needs attended. call light in reach. pui- covid isolation. will monitor. Addendum: 12/03/19 at 0334 by Keith Duong RN pt has bilateral hand mittens. no sign of injury.
[2019-12-02 23:06] VITALS: BP_SYST 129
[2019-12-02] MEDS: INSULIN GLARGINE 100 UNITS/ML 10 ML VIAL SUBCUT SCH (23:22)
--- NOTE | 2019-12-03 | NUR ---
pt is awake, alert. getting breathing treatment form RT. stable. no pain. needs attended. will monitor.
[2019-12-03] MEDS: 0.45% NACL 1,000 ML IV SCH ×3 (00:03→20:03)
[2019-12-03 01:00] VITALS: BP_SYST 133
[2019-12-03] MEDS: ALBUTEROL SULFATE 0.083% 2.5 MG/3 ML VIAL.NEB INH SCH ×8 (01:16→23:29)
[2019-12-03] MEDS: IPRATROPIUM BROM 0.5 MG/2.5 ML VIAL.NEB (ATROVENT) INH SCH ×8 (01:16→23:29)
[2019-12-03] MEDS: ACETYLCYSTEINE 10% 4 ML VIAL (RT) INH SCH ×5 (01:17→19:48)
--- NOTE | 2019-12-03 02:00 | NUR ---
pt is resting, comfortable. no sign of pain. stable. safety precaution in place. will monitor.
--- NOTE | 2019-12-03 03:55 | NUR ---
pt is resting, comfortable. no sign of pain.no distress. stable. safety precaution in place. will monitor.
--- NOTE | 2019-12-03 06:10 | NUR ---
pt is awake, alert, no pain, not distress, stable. ivf infusing well. safety precaution in place. sz precaution, pui-on covid isolation. will monitor.
--- NOTE | 2019-12-03 07:28 | NUR ---
closing: pt is resting in bed.comfortable. no pain, not distress,o2 2l via nc, lopez catheter in place, draining well. bilateral mittens in place. covid isolation. sz precaution. bed is lock and low. bed alarm on. sbar report robertane to am rn.
--- NOTE | 2019-12-03 07:30 | NUR ---
OPENING NOTES: RECEIVED PATIENT FROM ADVERTISING SALES MANAGER NURSE. PATIENT IS ASLEEP LAYING DOWN IN BED. PATIENT IS TOLERATING OXYGEN ON 2 L NASAL CANNULA WITH NO SIGNS OF DISTRESS OR SHORTNESS OF BREATH NOTED. IV SITE IS PATENT WITH NO SIGNS OF INFILTRATION NOTED. PEARL CATHETER INTACT AND DRAINING BY GRAVITY. PATIENT ON BILATERAL MITTENS DUE TO PATIENT ATTEMPTING TO PULL OUT LINES AND BEING CONFUSED. NO SIGNS OF DECREASED CIRCULATION NOTED. PATIENT IN STABLE CONDITION. SAFETY, FALL, ASPIRATION, SEIZURE, AND CONTACT/DROPLET PRECAUTIONS ARE IN PLACE. BED LOCKED IN LOWEST POSITION WITH CALL LIGHT IN REACH. WILL CONTINUE TO MONITOR PATIENT FOR ANY CHANGES.
[2019-12-03] MEDS: INSULIN Lispro 100 UNITS/ML VIAL (humaLOG) SUBCUT SCH ×3 (07:35→16:47)
[2019-12-03] MEDS: INSULIN LISPRO SLIDING SCALE 100 UNITS/ML VIAL (humaLOG) SUBCUT PRN ×2 (07:36→12:06)
[2019-12-03 07:42] LABS: CALCIUM 7.7 mg/dL (8.4-11.0); CREATININE 0.91 mg/dL (0.55-1.30); POTASSIUM 3.9 mmol/L (3.5-5.1)
[2019-12-03 08:54] LABS: C-REACTIVE PROTEIN QUANT 14.1 mg/dL (0-0.5)
[2019-12-03 09:04] VITALS: BP_SYST 140
[2019-12-03] MEDS: LOSARTAN POTASSIUM 25 MG TABLET PO SCH (09:06)
[2019-12-03] MEDS: METOPROLOL TARTRATE 25 MG TABLET PO SCH ×2 (09:06→20:44)
[2019-12-03] MEDS: NEPHROVITE, (FOLIC ACID/VITAMIN B COMP W-C 1 TAB) PO SCH (09:06)
[2019-12-03] MEDS: levETIRAcetam 500 MG in NS 100 ML IV SCH ×2 (09:06→20:03)
[2019-12-03] MEDS: metroNIDAZOLE 500 mg/NS 100 ML IV SCH (09:06)
[2019-12-03] MEDS: EPOETIN ALFA 10,000 UNITS/ML VIAL SUBCUT SCH (09:07)
[2019-12-03] MEDS: ENOXAPARIN SODIUM 40 MG/0.4 ML SYRINGE SUBCUT SCH (09:07)
[2019-12-03] MEDS: THIAMINE HCL 100 MG in NS 50 ML IV SCH (10:20)
--- NOTE | 2019-12-03 10:20 | NUR ---
RN ROUNDS: PATIENT IS AWAKE AND ALERT x2 LAYING DOWN IN BED. PATIENT DENIES ANY PAIN AT THE MOMENT. IV SITE IS PATENT WITH NO SIGNS OF INFILTRATION NOTED. PATIENT FACETIMED WITH FAMILY MEMBERS AT THIS TIME. PATIENT IS TOLERATING OXYGEN ON 2 L NASAL CANNULA WITH NO SIGNS OF DISTRESS OR SHORTNESS OF BREATH NOTED. PATIENT ON BILATERAL MITTENS DUE TO PATIENT ATTEMPTING TO PULL OUT LINES. PATIENT IN STABLE CONDITION. BED LOCKED IN LOWEST POSITION WITH CALL LIGHT IN REACH. WILL CONTINUE TO MONITOR PATIENT FOR ANY CHANGES.
[2019-12-03] MEDS: MEROPENEM 1 GM in NS 100 ML IV SCH ×2 (12:03→18:48)
[2019-12-03 12:20] VITALS: BP_SYST 152
--- NOTE | 2019-12-03 12:22 | NUR ---
RN ROUNDS: PATIENT IS AWAKE AND ALERT x2 LAYING DOWN IN BED. PATIENT DENIES ANY PAIN AT THE MOMENT. PATIENT IS TOLERATING OXYGEN ON 2 L NASAL CANNULA WITH NO SIGNS OF DISTRESS NOTED. IV SITE IS PATENT AND RUNNING FLUIDS ORDERED. PATIENT IS ON BILATERAL MITTENS DUE TO PATIENT ATTEMPTING TO PULL OUT LINES. NO SIGNS OF DECREASED CIRCULATION NOTED. PATIENT IN STABLE CONDITION. WILL CONTINUE TO MONITOR PATIENT FOR ANY CHANGES.
[2019-12-03] MEDS: SOD FERRIC GLUC COMPLEX/SUC 125 MG in NS 100 ML IV SCH (12:41)
--- NOTE | 2019-12-03 14:25 | NUR ---
RN ROUNDS: PATIENT IS ASLEEP LAYING DOWN IN BED. PATIENT IS TOLERATING OXYGEN ON 2 L NASAL CANNULA WITH NO SIGNS OF DISTRESS NOTED. IV SITE IS PATENT WITH NO SIGNS OF INFILTRATION NOTED. PATIENT IS ON BILATERAL MITTENS DUE TO PATIENT ATTEMPTING TO PULL OUT TUBES. NO SIGNS OF DECREASED CIRCULATION NOTED. PATIENT IN STABLE CONDITION. WILL CONTINUE TO MONITOR PATIENT FOR ANY CHANGES.
[2019-12-03 16:12] VITALS: BP_SYST 150
--- NOTE | 2019-12-03 16:15 | NUR ---
RN ROUNDS: PATIENT IS AWAKE AND ALERT x2 LAYING DOWN IN BED. WATER WAS PROVIDED TO THE PATIENT. PATIENT REFUSED TO EAT ANYTHING. PATIENT DENIES ANY PAIN AT THE MOMENT. PATIENT IS TOLERATING OXYGEN ON 2 L NASAL CANNULA WITH NO SIGNS OF DISTRESS NOTED. IV SITE IS PATENT WITH NO SIGNS OF INFILTRATION NOTED. PATIENT IS ON BILATERAL MITTENS DUE TO PATIENT ATTEMPTING TO PULL OUT TUBES. NO SIGNS OF DECREASED CIRCULATION NOTED. PATIENT IN STABLE CONDITION. BED LOCKED IN LOWEST POSITION WITH CALL LIGHT IN REACH. WILL CONTINUE TO MONITOR PATIENT FOR ANY CHANGES.
--- NOTE | 2019-12-03 18:44 | NUR ---
CLOSING NOTES: PATIENT IS AWAKE AND ALERT x2 LAYING DOWN IN BED. PATIENT IS TOLERATING OXYGEN ON 2 L NASAL CANNULA WITH NO SIGNS OF DISTRESS OR SHORTNESS OF BREATH NOTED. PATIENT DENIES ANY PAIN AT THE MOMENT. IV SITE IS PATENT WITH NO SIGNS OF INFILTRATION NOTED. PEARL CATHETER INTACT AND DRAINING BY GRAVITY. PATIENT ON BILATERAL MITTENS DUE TO PATIENT ATTEMPTING TO PULL OUT LINES AND BEING CONFUSED. NO SIGNS OF DECREASED CIRCULATION NOTED. PATIENT IN STABLE CONDITION. SAFETY, FALL, ASPIRATION, SEIZURE, AND CONTACT/DROPLET PRECAUTIONS REMAINED IN PLACE THROUGHOUT THE SHIFT. BED LOCKED IN LOWEST POSITION WITH CALL LIGHT IN REACH. WILL ENDORSE PATIENT CARE TO ONCOMING AUTO MOTOR MECHANIC NURSE.
--- NOTE | 2019-12-03 19:20 | NUR ---
Opening Notes Received report with patient in bed, alert to name. Bilateral mitten restraints in place with no injury. Seizure pads secured to rail. IV infusing to right wrist 20g, no infiltration at site. No appearance of pain. On 2L NC, with o2 sat at 100%. Luna draining by gravity yellow urine. Bed in lowest position with active bed alarm. Explained plan of care with patient and will monitor on rounds.
[2019-12-03 20:00] VITALS: BP_SYST 129
[2019-12-03] MEDS: INSULIN GLARGINE 100 UNITS/ML 10 ML VIAL SUBCUT SCH (20:46)
--- NOTE | 2019-12-03 22:05 | NUR ---
Patient repositioned. Completed call with sister addi via ipad. Tolerated all medications, crushed with apple sauce. BS 123, No insulin coverage indicated. Will cont to monitor on rounds.
[2019-12-04] VITALS (8 sets, daily range): BP systolic 92–118
--- NOTE | 2019-12-04 00:45 | NUR ---
Patient in bed resting. No appearance of pain or respiratory distress. Will cont to monitor on rounds.
[2019-12-04] MEDS: MEROPENEM 1 GM in NS 100 ML IV SCH ×3 (03:08→18:39)
--- NOTE | 2019-12-04 03:10 | NUR ---
Patient in bed. RT at bedside giving breathing tx. Suction set up at bedside. No pain or distress noticed.
[2019-12-04] MEDS: ALBUTEROL SULFATE 0.083% 2.5 MG/3 ML VIAL.NEB INH SCH ×6 (03:30→23:29)
[2019-12-04] MEDS: IPRATROPIUM BROM 0.5 MG/2.5 ML VIAL.NEB (ATROVENT) INH SCH ×6 (03:30→23:29)
--- NOTE | 2019-12-04 04:45 | NUR ---
No change in condition. Cleaned and repositioned. No respiratory distress.
--- NOTE | 2019-12-04 05:05 | NUR ---
PAGED PAGED DOCTOR [place]
--- NOTE | 2019-12-04 05:09 | NUR ---
Per Dr Mcnulty, okay to discontinue patient isolation from Droplet/Contact (Covid 19)
[2019-12-04] MEDS: 0.45% NACL 1,000 ML IV SCH ×2 (05:24→20:42)
[2019-12-04] MEDS: INSULIN LISPRO SLIDING SCALE 100 UNITS/ML VIAL (humaLOG) SUBCUT PRN ×2 (06:10→20:46)
[2019-12-04] MEDS: INSULIN Lispro 100 UNITS/ML VIAL (humaLOG) SUBCUT SCH ×3 (06:11→17:00)
--- NOTE | 2019-12-04 06:45 | NUR ---
Closing Notes Patient moved to room 104B. BS 175, insulin coverage given. IV fluids infusing and lopez draining to gravity. All needs have been met and will endorse care to incoming nurse.
--- NOTE | 2019-12-04 07:10 | NUR ---
Patient is unresponsive shallow breathing, warm, vitals taken and recorded, HHN given by RT, blood sugar 155 mg/dl, paged Dr. Faulkner and Dr. Rice .
--- NOTE | 2019-12-04 07:40 | NUR ---
Spoke to ferry pilot Dr. Rice informed regarding patient progress with orders carried out ,ABG done. @ 0755 hour kept patient on BIPAP by RT Radha 04/16 BR 16 FIO2 28% will monitor
--- NOTE | 2019-12-04 07:45 | NUR ---
Spoke to sister Lori sister ,Informed regarding progress unresponsive,plan of care ,will follow up.
[2019-12-04] MEDS: METOPROLOL TARTRATE 25 MG TABLET PO SCH ×2 (09:00→20:43)
[2019-12-04] MEDS: NEPHROVITE, (FOLIC ACID/VITAMIN B COMP W-C 1 TAB) PO SCH (09:00)
[2019-12-04] MEDS: LOSARTAN POTASSIUM 25 MG TABLET PO SCH (09:00)
[2019-12-04] MEDS: EPOETIN ALFA 10,000 UNITS/ML VIAL SUBCUT SCH (09:01)
[2019-12-04] MEDS: levETIRAcetam 500 MG in NS 100 ML IV SCH ×2 (09:02→20:43)
[2019-12-04] MEDS: THIAMINE HCL 100 MG in NS 50 ML IV SCH (09:02)
[2019-12-04] MEDS: ENOXAPARIN SODIUM 40 MG/0.4 ML SYRINGE SUBCUT SCH (09:08)
[2019-12-04] MEDS: SOD FERRIC GLUC COMPLEX/SUC 125 MG in NS 100 ML IV SCH (12:27)
--- NOTE | 2019-12-04 12:34 | NUR ---
Neuro Patient response to name moves her arm blinking the eyes on Bipap FIO2 40% oxygen saturation 98% will continue to monitor.
--- NOTE | 2019-12-04 13:19 | NUR ---
Patient repositioned by staff every 2 hours with pillow support, open yes to verbal stimuli, perineal care given, frequent monitoring.
[2019-12-04] MEDS: ACETYLCYSTEINE 10% 4 ML VIAL (RT) INH SCH ×4 (15:49→19:24)
--- NOTE | 2019-12-04 17:16 | NUR ---
Patient arousable to voice/name moves extremities on/off , blood sugar 115 mg/dl, on Bipap 40% FIO2 oxygen saturation 99%, looks comfortable, extremities kept elevated by pillow to avoid pressure sore, will monitor.
--- NOTE | 2019-12-04 17:45 | NUR ---
Sinus tachycardia Patient open eyes to verbal stimuli, hr 160/min ,BP 102/60, on BIPAP 40% oxygen saturation 99% , Dr. Kaushik Polanco.informed with n.o. carried out , will continue to monitor
[2019-12-04] MEDS ORDERED: DILTIAZEM HCL 25 MG/5 ML VIAL ONE (18:10)
[2019-12-04] MEDS: DILTIAZEM HCL 25 MG/5 ML VIAL IVP PRN (18:14)
--- NOTE | 2019-12-04 18:14 | NUR ---
PAGED PAGED DOCTOR Jackeline BO
--- NOTE | 2019-12-04 18:20 | NUR ---
IV RE-INSERTION: Restarted on Right wrist g24. Successful after 2 attempts. Resumed current IVF of Will observe for any signs of infiltration.
[2019-12-04] MEDS ORDERED: ACETAMINOPHEN 650 MG SUPP.RECT RC PRN (18:30)
[2019-12-04] MEDS ORDERED: ACETAMINOPHEN 325 MG TABLET PO PRN (18:30)
[2019-12-04] MEDS ORDERED: ACETAMINOPHEN 650 MG SUPP.RECT RC ONE (18:36)
--- NOTE | 2019-12-04 19:49 | NUR ---
OPENING NOTES received report from day shift nurse. pt lying in bed. no signs of pain and respiratory distress. pt on bipap, 10/5 FiO2 40%, pt is tolerating well SpO2 100%. skin warm and dry to touch. ivf infusing well, iv site patent, no signs of infiltration and infection. lopez in place, secured and draining by gravity. safety and seizure precautions in place. bed in lowest position and locked. bilateral feet elevated with pillow. will continue to monitor.
--- NOTE | 2019-12-04 20:40 | NUR ---
MEDPASS/HELD LOPRESSOR/ACCUCHECK Scheduled medications administered at this time. Scheduled Lopressor 50 mg PO was held due unable to arouse patient. Accucheck done, BS at 82, skin warm and dry to touch, no signs of hypoglycemia noted, Lantus held at this time, no coverage needed. IV site is patent, antibiotics infusing well. All needs met. Safety and seizure precautions in place. Will continue to monitor.
[2019-12-04] MEDS: INSULIN GLARGINE 100 UNITS/ML 10 ML VIAL SUBCUT SCH (20:44)
--- NOTE | 2019-12-04 22:15 | NUR ---
TRANSFER OF CARE Report given to CHANCE Tolliver. Patient in bed eyes closed, appears to be asleep. No s/s of acute distress noted. Breathing even and unlabored, Bipap in place and operating, patient tolerating well, SPO2 at 98. HOB raised. IVF infusing well, IV site patent, no signs of infiltration or infection noted. Luna attached, secured and draining by gravity. Skin warm and dry to touch. Feet elevated with pillows. All needs met. Safety and seizure precautions in place. Transfer of care done at this time.
--- NOTE | 2019-12-04 22:15 | NUR ---
i have assumed the care of the pt.for the remainder of the shift.pt.presents affect;calm,lethargic.pt.incapable to maintain awakened status.poor concentration.pt.presents hx;lt.breast cancer w/ lt.breast mastectomy.pt.presents iv access:rt.hand;iv fluids infusing.pt.to submit to the placement of mid line.12/04/19.awaiting arrival of the picc line/mid line karolineg;anderson.pt.presents lopez cath intact;patent urine content present.pt.assessed for cleanliness.pt.repositioned.call light/telephone placed w/in reach of the pt. Addendum: 12/05/19 at 0647 by Unruly Lisa RN bi-pap in progress.
--- NOTE | 2019-12-04 23:00 | NUR ---
rad picc line/mid-line nsg has successfully placed mid-line:location rt.bicept.i have transferred the iv fluids line to the mid-line access.i have placed the nsg/pt alert sign;@hob;x2 signs:alert:lt.arm s/p mastectomy,rt.arm;mid-line. appropriate nsg info.pt.maintains affect;lethargic;poor concentration. Addendum: 12/05/19 at 0648 by Unruly Lisa RN bi-pap in progress;i/e;04/16,fio-2%=40%,r/r;.
--- NOTE | 2019-12-05 | NUR ---
pt.assessed.v/s assessed;values;h/r:s..tachycardia.cardiazem to be administered.iv access;mid-line intact; patent iv fluids infusing.lopez cath intact;patent urine content present.pt.assessed for cleanliness.pt.repositioned.general status stable.respiratory status stable:02-sat=98%.call light/telephone placed w/in reach of the pt. Addendum: 12/05/19 at 0214 by Unruly Lisa RN per flacc pain mgx;pt.absent facial grimaces/body posturing.
--- NOTE | 2019-12-05 00:30 | NUR ---
i have administered cardizem;10mg ivp;per protocol.to re-assess the medication efficacy per protocol.
[2019-12-05 00:31] VITALS: BP_SYST 107
[2019-12-05] MEDS: DILTIAZEM HCL 25 MG/5 ML VIAL IVP PRN ×3 (00:32→15:50)
--- NOTE | 2019-12-05 01:00 | NUR ---
i have re-assessed the h/r.pt.maintains rapid h/r:s.tachycardia.to continue to monitor the h/r.
--- NOTE | 2019-12-05 02:00 | NUR ---
pt.assessed.pt.presents quiescent affect;calm,somnolent.h/r assessed;s.tachycardia.iv access mid-line intact; patent iv fluids infusing.lopez cath intact;patent urine content present.pt.assessed for cleanliness.pt.repositioned.general status stable. respiratory status stable:02-sat%=96%.per flacc pain mgx:pt.absent facial grimaces/body posturing.call light/ telephone placed w/in reach of the pt. Addendum: 12/05/19 at 0648 by Unruly Lisa RN bi-pap in progress.
[2019-12-05] MEDS: 0.45% NACL 1,000 ML IV SCH ×3 (02:15→23:16)
--- NOTE | 2019-12-05 03:00 | NUR ---
i have administered merrem;abx;ivpb:0300a dose via the mid-line.mid line intact patent.
[2019-12-05] MEDS: MEROPENEM 1 GM in NS 100 ML IV SCH ×3 (03:01→18:06)
[2019-12-05] MEDS: IPRATROPIUM BROM 0.5 MG/2.5 ML VIAL.NEB (ATROVENT) INH SCH ×6 (03:29→23:30)
[2019-12-05] MEDS: ALBUTEROL SULFATE 0.083% 2.5 MG/3 ML VIAL.NEB INH SCH ×6 (03:29→23:30)
--- NOTE | 2019-12-05 04:00 | NUR ---
pt.assessed.pt.presents quiescent affect;calm,somnolent.per flacc pain mgx;pt.absent facial grimaces/body posturing.mid-line intact;patent iv fluids infusing.lopez cath intact patent.bi-pap in progress.02-sat%wnl.pt. assessed for cleanliness.pt.repositioned call light/telephone placed w/in reach of the pt. Addendum: 12/05/19 at 0649 by Unruly Lisa RN bi-pap in progress.
[2019-12-05] MEDS: INSULIN Lispro 100 UNITS/ML VIAL (humaLOG) SUBCUT SCH ×2 (05:32→11:30)
[2019-12-05 05:45] VITALS: BP_SYST 133
--- NOTE | 2019-12-05 06:35 | NUR ---
pt.assessed.blood glucose assessed;value;70mg/dl.i have administered d50;25ml.blood glucose re-assessed;value;107mg/dl. pt.assessed for cleanliness.pt.repositioned.bi-pap in progress.pt.remained lethargic unresponsive to tactile/verbal stimulation pt's sister telephoned.i have provided pt's up-date/info w/in nsg parameters.call light/telephone placed w/in reach of the pt.
[2019-12-05 06:47] LABS: CALCIUM 7.9 mg/dL (8.4-11.0); CREATININE 0.72 mg/dL (0.55-1.30); POTASSIUM 3.3 mmol/L (3.5-5.1)
[2019-12-05 07:05] LABS: MEAN CORPUSCULAR HEMOGLOBIN 33 pg (27-31); MEAN CORPUSCULAR HGB CONC 29 % (32-36); MEAN CORPUSCULAR VOLUME 111 fL (79.0-98.0); PLATELET COUNT (AUTO) 108 K/uL (130-430); RED CELL DISTRIBUTION WIDTH 26.1 % (9.0-15.0); WHITE BLOOD COUNT (AUTO) 12.6 K/uL (4.8-10.8)
[2019-12-05 07:09] LABS: C-REACTIVE PROTEIN QUANT 13.7 mg/dL (0-0.5)
[2019-12-05 07:23] LABS: HEMOGLOBIN 4.3 g/dL (12.0-16.0)
[2019-12-05 07:24] LABS: HEMATOCRIT 14.5 % (36-48)
[2019-12-05 07:30] VITALS: BP_SYST 122
--- NOTE | 2019-12-05 07:30 | NUR ---
RECEIVED PT PT IN BED, PT IS LETHARGIC, ON CONTINUOS BIPAP, ONLY OPENS HER EYES, IV FLUIDS INFUSING WELL . BP WNL BUT HEART RATE IS ON THE 130'S. PT EDEMATOUS. WILL CONT TO MONITOR.
[2019-12-05] MEDS: ACETYLCYSTEINE 10% 4 ML VIAL (RT) INH SCH ×4 (07:51→19:40)
[2019-12-05 08:14] LABS: ERYTHROCYTE SEDIMENTATION RATE 105 MM/HR (0-20)
[2019-12-05] MEDS: THIAMINE HCL 100 MG in NS 50 ML IV SCH (08:52)
[2019-12-05] MEDS: levETIRAcetam 500 MG in NS 100 ML IV SCH ×2 (08:53→21:05)
[2019-12-05] MEDS: ENOXAPARIN SODIUM 40 MG/0.4 ML SYRINGE SUBCUT SCH (08:56)
[2019-12-05] MEDS: EPOETIN ALFA 10,000 UNITS/ML VIAL SUBCUT SCH (08:58)
[2019-12-05] MEDS: NEPHROVITE, (FOLIC ACID/VITAMIN B COMP W-C 1 TAB) PO SCH (09:00)
[2019-12-05] MEDS ORDERED: POTASSIUM CHLORIDE 40 MEQ in NS 250 ML IV ONE (09:00)
[2019-12-05] MEDS: LOSARTAN POTASSIUM 25 MG TABLET PO SCH (09:00)
[2019-12-05] MEDS: METOPROLOL TARTRATE 25 MG TABLET PO SCH ×2 (09:00→21:00)
--- NOTE | 2019-12-05 10:01 | NUR ---
all po meds not given due to pt is lethargic and on continuous bi-pap
--- NOTE | 2019-12-05 10:20 | NUR ---
pt's sister updated with pt's status and current condition. pt verified that pt cannot receive blood. sister is aware that pt is getting thoracentisis today, made aware also that midline was inserted yesterday.
[2019-12-05 10:44] LABS: BASOPHILS % (MANUAL) 0 % (0-2); CORRECTED WHITE BLOOD COUNT 10.7 K/uL (4.5-11.0); EOSINOPHILS % (MANUAL) 1 % (0-7); LYMPHOCYTES % (MANUAL) 29 % (20-46); MONOCYTES % (MANUAL) 7 % (0-11)
--- NOTE | 2019-12-05 11:08 | NUR ---
dr cardona and wafer fabrication technician haja did thoracentisis, 1 liter output. pt tolerated well.
[2019-12-05 12:00] VITALS: BP_SYST 132
[2019-12-05] MEDS: SOD FERRIC GLUC COMPLEX/SUC 125 MG in NS 100 ML IV SCH (12:18)
--- NOTE | 2019-12-05 12:55 | NUR ---
Nutrition F/U RD reviewed pt's current EMR including diet Hx, physician notes, nursing notes, pertinent labs/meds/procedures, care trends and care activity. Current Diet Order/Nutrition Support: [facility] diet x 7 days Subjective information: Per EMR, pt is lethargic and a/w transfer to [facility]. Abd is soft and nondistended, BM 12/04/19. PO intake remains negligible <30% of estimated needs. Pt tested negative to COVID-19 PCR on 12/01. 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 (*ongoing) Inadequate protein-energy intake r/t poor appetite 2/2 chronic disease AEB negligible PO intake meeting <25% of estimated needs (*new 12/05/2019) Expected Outcomes/Goals - Monitor pt's appetite and intake w/ goal of pt meeting at least 75% of estimated nutritional needs, labs trending WNL, normal GI function, skin integrity, and wt. maintenance. Dietitian Recommendations * Recommend continue [facility] Diet * Recommend provide Glucerna TID with meals. Glucerna TID will provide additional of 660 kcal and 30 g protein to optimize pt's nutritional intake. * Encourage pt to increase PO intake. Follow Up High Risk: F/U in 2-3days
--- NOTE | 2019-12-05 13:02 | NUR ---
Dietitian Recommendations * [facility] * Recommend provide Glucerna TID with meals. Glucerna TID will provide additional of 660 kcal and 30 g protein to optimize pt's nutritional intake. * Encourage pt to increase PO intake. Please see Nutrition F/U note for details. CARMEN, RD
--- NOTE | 2019-12-05 14:30 | NUR ---
PT IN BED, PT STILL LETHARGIC. CONTINUED TO BE ON BIPAP, NO CHANGE IN SETTINGS.
--- NOTE | 2019-12-05 15:41 | NUR ---
CADDO GAP INTAKE SPOKE WITH ISAMAR, CADDO GAP PAPERHANGER PIPE, ISAMAR WAS UPDATED WITH PT'S CONDITION, GIVEN LATEST LABS AND VITALS, ISAMAR INDICATED THAT HEART RATE IS ELEVATED AND SAID " I DONT THINK OUR DOCTOR WILL ACCEPT THE PT " THEN SHE HANG UP.
[2019-12-05 16:30] VITALS: BP_SYST 146
--- NOTE | 2019-12-05 17:41 | NUR ---
SPOKE WITH PT'S SISTER, SISTER WAS UPDATED WITH PT'S CONDITION.
--- NOTE | 2019-12-05 18:37 | NUR ---
CLOSING, PT'S BP WNL, PT'S HEART RATE REMAINED AT 120-130'S. PT STILL LETHARGIC, CONTINUED ON BIPAP WITH NO CHANGE IN SETTINGS. FAMILY UPDATED WITH PT'S CONDITION. GOETZ UPDATED WITH PRESENT STATUS AND CONDITION. ALL IV MEDICATIONS GIVEN. 1 LIT OUTPUT TAKEN FROM R. THORACENTESIS. PO MEDS NOT GIVEN DUE TO PT IS LETHARGIC. WILL ENDORSE TO NIGHT NURSE.
--- NOTE | 2019-12-05 19:30 | NUR ---
Opening notes Received report. Patient is resting in bed, eyes open. Does not respond to commands, eyes do not track. No signs of distress noted. Breathing even and unlabored on Bipap Settings: 10/5, RR16, FiO2 40%. O2 sat 100%.Midline patent and intact, infusing fluids. Luna catheter in place, draining urine. No needs at this time. Call light with the patient. Safety precautions in place.
[2019-12-05 20:00] VITALS: BP_SYST 149
--- NOTE | 2019-12-05 20:46 | NUR ---
Spoke to Dr. Rojas Informed MD on patient's latest blood sugar of 93 and patient's sugar throughout day has been in 70's and 80's. Patient has not been eating. stated to ROQUE Rosenthal.
[2019-12-05] MEDS ORDERED: INSULIN GLARGINE 100 UNITS/ML 10 ML VIAL SUBCUT SCH (21:00)
--- NOTE | 2019-12-05 21:00 | NUR ---
Medications given. Educated the action and side effects of medications. Accucheck 93. No insulin given per sliding scale.
--- NOTE | 2019-12-05 22:15 | NUR ---
Spoke to sister Lori. Updated sister on patient condition and plan of care. Sister verbalized understanding. All questions and concerns addressed. Sister will call patient in morning.
[2019-12-06 00:19] VITALS: BP_SYST 127
--- NOTE | 2019-12-06 00:30 | NUR ---
RN rounds Patient is resting in bed. Tolerating Bipap. O2 sat 100%. Patient turned and repositioned. Tolerated well. No needs. Call light with the patient. Safety precautions in place.
--- NOTE | 2019-12-06 02:08 | NUR ---
RN rounds Patient is resting in bed. No signs of distress noted. Breathing even and unlabored, on Bipap. Patient repositioned to comfort. No other needs. Call light with the patient. Safety precautions in place.
[2019-12-06] MEDS: DILTIAZEM HCL 25 MG/5 ML VIAL IVP PRN ×2 (02:19→20:50)
[2019-12-06] MEDS: MEROPENEM 1 GM in NS 100 ML IV SCH ×3 (02:19→18:37)
[2019-12-06] MEDS: ALBUTEROL SULFATE 0.083% 2.5 MG/3 ML VIAL.NEB INH SCH ×6 (03:30→23:13)
[2019-12-06] MEDS: IPRATROPIUM BROM 0.5 MG/2.5 ML VIAL.NEB (ATROVENT) INH SCH ×6 (03:30→23:14)
--- NOTE | 2019-12-06 03:37 | NUR ---
FiO2 decreased to 30% by RT. Current O2 sat 100%. Will continue to monitor.
--- NOTE | 2019-12-06 06:26 | NUR ---
Closing notes Patient is resting in bed. No signs of distress noted. Breathing even and unlabored on Bipap. O2 sat 98%. Midline patent and intact, infusing fluids. Luna catheter in place, draining yellow urine. Accucheck 140. No insulin necessary. All needs met throughout the shift. Call light with the patient. Safety precautions in place. Will endorse care to day shift RN.
[2019-12-06] MEDS: ACETYLCYSTEINE 10% 4 ML VIAL (RT) INH SCH ×4 (07:42→19:56)
[2019-12-06 08:00] VITALS: BP_SYST 136
[2019-12-06 08:04] LABS: CALCIUM 7.9 mg/dL (8.4-11.0); CREATININE 0.66 mg/dL (0.55-1.30); POTASSIUM 3.7 mmol/L (3.5-5.1)
[2019-12-06] MEDS: levETIRAcetam 500 MG in NS 100 ML IV SCH ×2 (08:50→20:49)
[2019-12-06] MEDS: THIAMINE HCL 100 MG in NS 50 ML IV SCH (08:51)
[2019-12-06] MEDS: ENOXAPARIN SODIUM 40 MG/0.4 ML SYRINGE SUBCUT SCH (09:00)
[2019-12-06] MEDS: 0.45% NACL 1,000 ML IV SCH ×2 (09:06→17:51)
[2019-12-06] MEDS: METOPROLOL TARTRATE 25 MG TABLET PO SCH ×2 (09:14→21:00)
[2019-12-06] MEDS: NEPHROVITE, (FOLIC ACID/VITAMIN B COMP W-C 1 TAB) PO SCH (09:15)
[2019-12-06] MEDS: LOSARTAN POTASSIUM 25 MG TABLET PO SCH (09:15)
[2019-12-06] MEDS: EPOETIN ALFA 10,000 UNITS/ML VIAL SUBCUT SCH (09:33)
--- NOTE | 2019-12-06 10:10 | NUR ---
DC Planning: updated to [facility]/ Maria Eugenia,Pharmaceutical Assistant: Hgb 4.3, Hct 14.5 yesterday, the pt is Jahovah's witness, on bipap fio2 30% HR 130, ESR 105. Per Maria Eugenia the pillowcase folder/Cordelia will review the clinical information and will call back with the continue inpatient stay approval vs. transfer pt to [facility] work. Informed [facility] that pt's spouse/Crystal and nephew/Omar requested pt to stay at [facility] , not to transfer to [facility] facility. I let the family know about the general transfer to [facility] work plan per [facility] policy and advised them to contact [facility] customer service to express their concerns. Crystal stated " the pt may not be removed from [facility]. she will call [facility] and take care of the insurance". Addendum: 12/07/19 at 1040 by Octavio Ocasio RN Late entry: 12/06/19 @ 5006 received call from pt's sister Miguelina # [phone], CM clarified the patient relationship/next of kin. Miguelina stated she is the only sibling who looks after and helps the pt. Their parents and another brother already . Omar is Mgiuelina's son, and Crystal is Omar's . Miguelina spoke with Beckyn/KASSIDY and myself via conference call to confirm the next of kin that she would be the first person to be called and would make decision for the patient as needed. She stated she will honor the pt wishes " DNR status" ( the pt made own decision and signed the consent ). Please contact Miguelina # [phone] to update the pt 's status or for any questions or concerns.
[2019-12-06 12:40] VITALS: BP_SYST 135
[2019-12-06 16:43] VITALS: BP_SYST 122
[2019-12-06] MEDS: INSULIN LISPRO SLIDING SCALE 100 UNITS/ML VIAL (humaLOG) SUBCUT PRN ×2 (16:55→23:55)
[2019-12-06] MEDS ORDERED: DEXTROSE 50% JECT 50 ML DISP.SYRIN IVP PRN (17:00)
[2019-12-06] MEDS ORDERED: INSULIN REGULAR, HUMAN 100 UNITS/ML, 10 ML VIAL (humuLIN R) SUBCUT PRN (17:00)
[2019-12-06] MEDS ORDERED: *PPN PER PHARMACY XX PRN (17:00)
--- NOTE | 2019-12-06 18:46 | NUR ---
Handoff with night team registered nurse. Pop Dumont RN
--- NOTE | 2019-12-06 19:30 | NUR ---
Opening notes Received report. Patient is resting in bed, opens eyes when name called. No signs of distress noted. Breathing even and unlabored on Bipap Settings: 10/5, RR16, FiO2 30%. O2 sat 100%. Midline patent and intact, infusing fluids. Luna catheter in place, draining urine. No needs at this time. Call light with the patient. Safety precautions in place.
[2019-12-06 20:00] VITALS: BP_SYST 137
--- NOTE | 2019-12-06 21:00 | NUR ---
BM Patient had BM. Hygiene care provided. Patient tolerated well. Repositioned to comfort. No other needs. Call light with the patient. Safety precautions in place.
--- NOTE | 2019-12-06 22:30 | NUR ---
Spoke to family Spoke to Elvira Emanuel and updated on plan of care. Nephew verbalized understanding. Questions and concerns answered.
--- NOTE | 2019-12-07 00:30 | NUR ---
RN rounds Patient is resting in bed. Tolerating Bipap. O2 sat 97%. Patient turned and repositioned. Tolerated well. No needs. Call light with the patient. Safety precautions in place.
[2019-12-07 01:22] VITALS: BP_SYST 138
[2019-12-07] MEDS: ALBUTEROL SULFATE 0.083% 2.5 MG/3 ML VIAL.NEB INH SCH ×6 (03:31→23:05)
[2019-12-07] MEDS: IPRATROPIUM BROM 0.5 MG/2.5 ML VIAL.NEB (ATROVENT) INH SCH ×6 (03:31→23:05)
[2019-12-07] MEDS: MEROPENEM 1 GM in NS 100 ML IV SCH (03:54)
[2019-12-07] MEDS: 0.45% NACL 1,000 ML IV SCH ×2 (03:55→15:15)
--- NOTE | 2019-12-07 04:30 | NUR ---
BM Patient had BM. Hygiene care provided. Patient tolerated well. Repositioned to comfort. No other needs. Call light with the patient. Safety precautions in place.
[2019-12-07] MEDS: INSULIN LISPRO SLIDING SCALE 100 UNITS/ML VIAL (humaLOG) SUBCUT PRN ×3 (05:53→23:30)
--- NOTE | 2019-12-07 06:51 | NUR ---
Closing notes Patient is resting in bed. No signs of distress noted. Breathing even and unlabored on Bipap. O2 sat 98%. Midline patent and intact, infusing fluids. Luna catheter in place, draining yellow urine. Accucheck 164. Insulin given per sliding scale. All needs met throughout the shift. Call light with the patient. Safety precautions in place. Will endorse care to day shift RN.
[2019-12-07 07:06] LABS: MEAN CORPUSCULAR HEMOGLOBIN 34 pg (27-31); MEAN CORPUSCULAR HGB CONC 30 % (32-36); MEAN CORPUSCULAR VOLUME 115 fL (79.0-98.0); PLATELET COUNT (AUTO) 106 K/uL (130-430); RED CELL DISTRIBUTION WIDTH 28.5 % (9.0-15.0)
[2019-12-07 07:12] LABS: RED BLOOD CELL COUNT(AUTO) 1.13 MIL/uL (4.2-6.2)
[2019-12-07 07:13] LABS: HEMOGLOBIN 3.8 g/dL (12.0-16.0)
[2019-12-07 07:26] LABS: ALBUMIN 1.9 g/dL (3.4-4.8); CREATININE 0.76 mg/dL (0.55-1.30); PHOSPHORUS 2.9 mg/dL (2.7-4.5); POTASSIUM 3.1 mmol/L (3.5-5.1); TOTAL BILIRUBIN 0.8 mg/dL (0.0-1.0)
[2019-12-07] MEDS: ACETYLCYSTEINE 10% 4 ML VIAL (RT) INH SCH ×4 (07:30→20:06)
[2019-12-07 07:32] VITALS: BP_SYST 145
[2019-12-07 07:53] LABS: ERYTHROCYTE SEDIMENTATION RATE > 140 MM/HR (0-20)
[2019-12-07 08:30] LABS: C-REACTIVE PROTEIN QUANT 14.8 mg/dL (0-0.5)
--- NOTE | 2019-12-07 08:58 | NUR ---
Nutrition F/U Admit Dx: Respiratory Failure, Pleural Effusion RD reviewed pt's current EMR including diet Hx, physician notes, nursing notes, pertinent labs/meds/procedures, care trends and care activity. Current Diet Order/Nutrition Support: [facility] diet x 9 days + PPN (pending) Initial PPN per pharmD: D20% AA8.5% at 44ml/hr, IL20% at 5ml/hr via peripheral line Will provide: 779 kcal, 45gm protein, 1176ml free water and GIR 0.9gm CHO/kg/min Will meet: 54% of lower end of estimated calorie needs and 63% of lower end of estimated protein needs. Subjective information: PPN notification received from pharmacy 12/06/19 1700. Per EMR review, pt has not been eating x 4 days now, DNR status per family. Pt is not on any anti-cancer therapy at this point and stated that it will have to wait until she is medically stable. Pt refuses blood transfusion d/t yarsani beliefs. No PIs and has tested negative for COVID-[address] 12/[address] s/w pharmD Bach at [address] rec was verbalized. Per pharmD, will put lipid 20% at 5ml/hr. RD agreed. Pertinent Labs: 12/06 WBC 12H, H/H 3.8L/13L, TG 144WNL, Na 153H, K 3.1L, BG 176H, POC BG 164H, BUN 11WNL, CRE 0.76WNL. COVID-19 Negative 12/01 Reid scale: 14. Per RN notes, +skin tear to R antecubital. Non-pitting edema to Bilateral arm, 1+ pitting edema to BLE. 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 (*ongoing) Inadequate protein-energy intake r/t poor appetite 2/2 chronic disease AEB negligible PO intake meeting <25% of estimated needs (*ongoing) Expected Outcomes/Goals - Monitor PPN, appetite and intake w/ goal of pt meeting at least 80% of estimated nutritional needs, triglyceride labs trending WNL, normal GI function, skin integrity, and wt. maintenance. Dietitian Recommendations * Recommend continue [facility] Diet. * Recommend D20% AA8.5% at 90ml/hr (goal rate), IL20% at 5ml/hr via peripheral line. PPN Provides: 1342 kcal, 92gm protein, 2280ml free water and GIR 1.9gm CHO/kg/min PPN meets: 80% of upper end of estimated calorie needs and 96% of upper end of estimated protein needs. Follow Up High Risk: F/U in 2-3days
[2019-12-07] MEDS: ENOXAPARIN SODIUM 40 MG/0.4 ML SYRINGE SUBCUT SCH (09:00)
--- NOTE | 2019-12-07 09:12 | NUR ---
Dietitian Recommendations * Recommend continue [facility] Diet. * Recommend D20% AA8.5% at 90ml/hr (goal rate), IL20% at 5ml/hr via peripheral line. PPN Provides: 1342 kcal, 92gm protein, 2280ml free water and GIR 1.9gm CHO/kg/min PPN meets: 80% of upper end of estimated calorie needs and 96% of upper end of estimated protein needs. RD s/w pharmD [id number]. Please see Nutrition F/U note for details. MELISSA MORALES
[2019-12-07] MEDS: THIAMINE HCL 100 MG in NS 50 ML IV SCH (09:26)
[2019-12-07] MEDS: levETIRAcetam 500 MG in NS 100 ML IV SCH ×2 (09:26→21:28)
[2019-12-07] MEDS: EPOETIN ALFA 10,000 UNITS/ML VIAL SUBCUT SCH (09:31)
[2019-12-07] MEDS: LOSARTAN POTASSIUM 25 MG TABLET PO SCH (09:31)
[2019-12-07] MEDS: NEPHROVITE, (FOLIC ACID/VITAMIN B COMP W-C 1 TAB) PO SCH (09:31)
[2019-12-07] MEDS: METOPROLOL TARTRATE 25 MG TABLET PO SCH ×2 (09:31→21:00)
[2019-12-07 09:35] LABS: BAND % (MANUAL) 3 % (0-6); LYMPHOCYTES % (MANUAL) 20 % (20-46)
[2019-12-07 09:36] LABS: BASOPHILS % (MANUAL) 0 % (0-2); EOSINOPHILS % (MANUAL) 0 % (0-7); MONOCYTES % (MANUAL) 7 % (0-11)
[2019-12-07 10:37] VITALS: BP_SYST 145
--- NOTE | 2019-12-07 10:41 | NUR ---
DC Planning: No returning call from Raysal/[facility] yesterday, but from Radha today at 1015. I updated the pt's clinical status: The pt is Jahovah's witness, Hgb 3.8, Hct 13.0, ESR >140 and faxed the lab results, pulmo progress note, VS trends reports to fax # [phone], tel [phone]. Per Radha " the pt is not stable for transfer ". Stated " she has yesterday clinical review report and will review the today documents. Then, she will call [facility] dept [phone] to give the inpatient approval." -- SB [facility]oon dept made aware.
[2019-12-07 12:13] VITALS: BP_SYST 125
[2019-12-07 16:33] VITALS: BP_SYST 123
--- NOTE | 2019-12-07 18:09 | NUR ---
Sister of patient, Lori, says " I will give Doctor Paliwal permission to remove bipap and allow patient to pass peacefully tomorrow. I just want everyone to be able to call the patient prior and speak with her." Handoff with night team registered nurse. Pop Dumont RN
--- NOTE | 2019-12-07 19:55 | NUR ---
PM SHIFT ASSESSMENT Received patient lying in bed, resting quietly, alert to name only, on bipap, vital signs stable. IV line to right upper arm intact and patent, IVF infusing at this time, Luna catheter secured and to gravity, draining yellow urine, patient repositioned with pillow support, fall and safety measures in place. Will monitor.
[2019-12-07 20:00] VITALS: BP_SYST 129
--- NOTE | 2019-12-07 21:23 | NUR ---
FAMILY Sister Lori called, updated her on patients status and answered all her questions.
[2019-12-07] MEDS: CEFEPIME 0.5 GM in D5W 50 ML IV SCH (21:28)
[2019-12-07] MEDS: FAT EMULSIONS 250 ML IV SCH (21:42)
[2019-12-07] MEDS: [UNRECOGNIZED DRUG - OTHER] IV SCH ×9 (21:42)
[2019-12-07] MEDS: POTASSIUM CHLORIDE IV SCH ×9 (21:42)
[2019-12-07] MEDS: POTASSIUM ACETATE IV SCH ×9 (21:42)
[2019-12-07] MEDS: TPN PERIPHERAL IV SCH ×9 (21:42)
--- NOTE | 2019-12-07 22:00 | NUR ---
MED PASS Patient started on TPN and lipids, due antibiotics administered, vital signs stable.
[2019-12-08] VITALS: BP_SYST 138
--- NOTE | 2019-12-08 00:53 | NUR ---
RN ROUNDS Patient sleeping, remains on bipap, 02 saturation of 92%, vital signs stable, blood sugar check this pm of 210, covered with 4 units humalog insulin, repositioned with pillow support, safety measures in place.
--- NOTE | 2019-12-08 02:27 | NUR ---
RN ROUNDS Patient continues to sleep, remains on bipap, 02 saturation of 92%, repositioned with pillow support, safety measures in place.
[2019-12-08] MEDS: ALBUTEROL SULFATE 0.083% 2.5 MG/3 ML VIAL.NEB INH SCH ×6 (02:52→23:24)
[2019-12-08] MEDS: IPRATROPIUM BROM 0.5 MG/2.5 ML VIAL.NEB (ATROVENT) INH SCH ×6 (02:52→23:24)
[2019-12-08] MEDS: DILTIAZEM HCL 25 MG/5 ML VIAL IVP PRN ×2 (03:47→21:47)
--- NOTE | 2019-12-08 03:56 | NUR ---
HEART RATE Patient's heart rate up to 140s, cardizem IVP administered, vital signs stable. Will recheck heart rate shortly.
--- NOTE | 2019-12-08 04:47 | NUR ---
RN ROUNDS Patient continues to sleep, remains on bipap, heart rate of 135 at this time, 02 saturation of 93%.
[2019-12-08] MEDS: INSULIN LISPRO SLIDING SCALE 100 UNITS/ML VIAL (humaLOG) SUBCUT PRN ×4 (05:31→23:47)
--- NOTE | 2019-12-08 06:35 | NUR ---
RN ROUNDS Patient continues to sleep, has spontaneous eye openings, vital signs stable, heart rate remains in the 130s with 02 saturation of 93%. Blood sugar check this am of 248, covered with humalog insulin per sliding scale, hygiene care provided, repositioned and turned with pillow support, updated Lori on patient's status over the phone. Will continue to monitor patient until report given to am nurse.
[2019-12-08] MEDS: ACETYLCYSTEINE 10% 4 ML VIAL (RT) INH SCH ×4 (07:13→19:00)
[2019-12-08 07:36] VITALS: BP_SYST 139
[2019-12-08] MEDS: ENOXAPARIN SODIUM 40 MG/0.4 ML SYRINGE SUBCUT SCH (09:00)
[2019-12-08 09:15] LABS: ALBUMIN 1.9 g/dL (3.4-4.8); CALCIUM 8.3 mg/dL (8.4-11.0); CREATININE 0.71 mg/dL (0.55-1.30); PHOSPHORUS 3.4 mg/dL (2.7-4.5); POTASSIUM 3.4 mmol/L (3.5-5.1); TOTAL BILIRUBIN 0.7 mg/dL (0.0-1.0)
[2019-12-08] MEDS: levETIRAcetam 500 MG in NS 100 ML IV SCH ×2 (09:59→21:19)
[2019-12-08] MEDS: CEFEPIME 0.5 GM in D5W 50 ML IV SCH (09:59)
[2019-12-08] MEDS: THIAMINE HCL 100 MG in NS 50 ML IV SCH (10:03)
[2019-12-08] MEDS: METOPROLOL TARTRATE 25 MG TABLET PO SCH ×2 (10:08→21:00)
[2019-12-08] MEDS: LOSARTAN POTASSIUM 25 MG TABLET PO SCH (10:09)
[2019-12-08] MEDS: NEPHROVITE, (FOLIC ACID/VITAMIN B COMP W-C 1 TAB) PO SCH (10:09)
[2019-12-08] MEDS: EPOETIN ALFA 10,000 UNITS/ML VIAL SUBCUT SCH (10:09)
[2019-12-08 13:01] VITALS: BP_SYST 123
--- NOTE | 2019-12-08 16:15 | NUR ---
1615 INCREASED FIO2 TO 40% DUE TO PT DESAT. SPO2 98%, HR 140.
[2019-12-08 17:15] VITALS: BP_SYST 131
[2019-12-08] MEDS ORDERED: MORPHINE I.V. DRIP 100 ML IV PRN (17:45)
--- NOTE | 2019-12-08 18:50 | NUR ---
Morphine drip setup. Intravenous pump held on standby pending family visit prior to initiating therapy. Patient to have bipap discontinued as well after morphine drip begins. Endorsement to night team registered nurse. Pop Dumont RN
[2019-12-08 20:00] VITALS: BP_SYST 150
--- NOTE | 2019-12-08 20:00 | NUR ---
INITIAL NOTE AT INITIAL ASSESSMENT, PATIENT IS RESTING IN BED, STABLE, NO SIGNS OF RESPIRATORY DISTRESS. PATIENT SHOWS NO PAIN PER FLACC SCALE USED. PLAN OF CARE FOR THE EVENING IS COMMUNICATED WITH THE PATIENT. PATIENT IS UNSUCCESSFUL IN DEMONSTRATION OF CORRECT USAGE OF CALL LIGHT DUE TO COGNITIVE IMPAIRMENT. BED IS LOCKED, ALARMED, AND AT THE LOWEST LEVEL. FALL, SAFETY, RESPIRATORY, AND ASPIRATION PRECAUTIONS WILL BE TAKEN THROUGHOUT THE SHIFT.
[2019-12-08] MEDS: TPN PERIPHERAL IV SCH ×9 (20:41)
[2019-12-08] MEDS: [UNRECOGNIZED DRUG - OTHER] IV SCH ×9 (20:41)
[2019-12-08] MEDS: POTASSIUM CHLORIDE IV SCH ×9 (20:41)
[2019-12-08] MEDS: POTASSIUM ACETATE IV SCH ×9 (20:41)
[2019-12-08] MEDS ORDERED: TPN PERIPHERAL IV SCH ×9 (21:00)
[2019-12-08] MEDS ORDERED: K PHOS IV SCH ×9 (21:00)
[2019-12-08] MEDS ORDERED: POTASSIUM CHLORIDE IV SCH ×9 (21:00)
[2019-12-08] MEDS ORDERED: [UNRECOGNIZED DRUG - OTHER] IV SCH ×9 (21:00)
[2019-12-08] MEDS: FAT EMULSIONS 250 ML IV SCH (21:32)
--- NOTE | 2019-12-08 21:35 | NUR ---
Paged Dr. Faulkner Lexa
--- NOTE | 2019-12-08 22:00 | NUR ---
PAIN NOTE SCHEDULED MEDICATIONS ALSO GIVEN AT THIS TIME. SHE IS RESTING IN BED, STABLE, NO SIGNS OF RESPIRATORY DISTRESS. CALL LIGHT IS WITHIN REACH. BED IS LOCKED, ALARMED, AND AT THE LOWEST LEVEL. Addendum: 12/10/19 at 0610 by Ashok Ordoñez RN NO PAIN
--- NOTE | 2019-12-08 22:05 | NUR ---
COMMUNICATION WITH Jackeline TORRE. Niki TORRE HAS CALLED BACK AT THIS TIME, HE WAS MADE AWARE THAT THE PATIENT'S FAMILY HAS CHANGED THEIR MIND ABOUT WANTING TO START THE PATIENT ON MORPHINE DRIP AND TAKEN OFF BIPAP TONIGHT. MD HAS D/C MORPHINE AND ASKED TO CONTINUE HER BIPAP, AND ORDERED A HOSPICE EVALUATION FOR THE PATIENT. ORDERS READ BACK, VERIFIED, AND ENTERED. CHARGE NURSE JOSE AWARE.
[2019-12-09] VITALS: BP_SYST 136
--- NOTE | 2019-12-09 | NUR ---
NOTE BLOOD SUGAR CHECK AT THIS TIME REQUIRED INSULIN COVERAGE PER SSI ORDERED BY MD. PATIENT IS RESTING IN BED, STABLE, NO SIGNS OF RESPIRATORY DISTRESS. CALL LIGHT IS WITHIN REACH. BED IS LOCKED, ALARMED, AND AT THE LOWEST LEVEL.
[2019-12-09] MEDS ORDERED: CEFEPIME 1 GM/VIAL (MAXIPIME) ONE (01:07)
[2019-12-09] MEDS: CEFEPIME 0.5 GM in D5W 50 ML IV SCH ×3 (01:47→22:47)
--- NOTE | 2019-12-09 02:00 | NUR ---
NOTE PATIENT IS SLEEPING, STABLE, NO SIGNS OF RESPIRATORY DISTRESS. CALL LIGHT IS WITHIN REACH. BED IS LOCKED, ALARMED, AND AT THE LOWEST LEVEL.
--- NOTE | 2019-12-09 04:00 | NUR ---
HYGIENE CARE NOTE HYGIENE CARE PROVIDED AT THIS TIME, FRESH LINENS PROVIDED, PATIENT TOLERATED WELL. SHE IS REPOSITIONED FOR COMFORT. AT THIS TIME, PATIENT IS RESTING IN BED, STABLE, NO SIGNS OF RESPIRATORY DISTRESS. CALL LIGHT IS WITHIN REACH. BED IS LOCKED, ALARMED, AND AT THE LOWEST LEVEL.
[2019-12-09] MEDS: IPRATROPIUM BROM 0.5 MG/2.5 ML VIAL.NEB (ATROVENT) INH SCH ×6 (04:10→22:53)
[2019-12-09] MEDS: ALBUTEROL SULFATE 0.083% 2.5 MG/3 ML VIAL.NEB INH SCH ×6 (04:10→22:52)
[2019-12-09] MEDS: DILTIAZEM HCL 25 MG/5 ML VIAL IVP PRN (05:02)
[2019-12-09] MEDS: INSULIN LISPRO SLIDING SCALE 100 UNITS/ML VIAL (humaLOG) SUBCUT PRN ×4 (05:16→23:19)
--- NOTE | 2019-12-09 06:00 | NUR ---
CLOSING NOTE PATIENT SLEPT WELL THROUGHOUT THE NIGHT, VITALS STABLE. AT THIS TIME, PATIENT IS RESTING IN BED, STABLE, NO SIGNS OF INCREASED RESPIRATORY DISTRESS. BED IS LOCKED, ALARMED, AND AT THE LOWEST LEVEL. FALL, SAFETY, SEIZURE, RESPIRATORY, AND ASPIRATION PRECAUTIONS HAVE BEEN IN PLACE THROUGHOUT THE SHIFT. WILL CONTINUE TO MONITOR UNTIL SHIFT REPORT IS GIVEN AT BEDSIDE TO AM NURSE.
--- NOTE | 2019-12-09 06:45 | NUR ---
FAMILY AGITATED, YELLING NONSTOP PATIENT'S SISTER (MELISSA) CALLED ABOUT 0620 WANTING AN UPDATE ON THE PATIENT, CHARGE NURSE JOSE COMMUNICATED TO MELISSA THAT I (HER NURSE) WAS REQUESTING HER TO CALL BACK AT A LATER TIME BECAUSE I WAS GIVING MEDICATIONS AND GIVING PATIENT CARE AT THIS TIME. MELISSA "REFUSED TO HANG UP", BUT I WAS UNABLE TO ANSWER HER CALL UNTIL 0640 BECAUSE AT THIS TIME ANOTHER CONFUSED AND AGITATED PATIENT WAS HITTING NURSES; IT TOOK EVERYONE AT THE NURSING STATION TO GET HIM BACK TO BED. IT WAS EXPLAINED TO MELISSA THAT ALTHOUGH SHE IS UNDERSTANDABLY FRUSTRATED, I HAD TO PRIORITIZE PATIENT SAFETY AND PATIENT CARE BEFORE TAKING ON THE PHONE TO UPDATE FAMILY MEMBERS ON A STABLE PATIENT. MELISSA YELLED ON THE PHONE FOR OVER A MINUTE SAYING IT WAS "RUDE" TO MAKE HER WAIT "SINCE 5 AM" WHEN SHE HAS A "DYING SISTER SHE JUST WANTS AN UPDATE ON". NO PHONE CALL WAS RECEIVED FROM MELISSA UNTIL 0620. ALTHOUGH I HAD COMMUNICATED THAT THE PATIENT DID WELL THROUGHOUT THE NIGHT, WITH STABLE BLOOD PRESSURE, AND HER OXYGEN SATURATION WAS STABLE THROUGHOUT THE NIGHT, MELISSA STATED THAT I WAS "RUDE" AND "RIDICULOUS" MANY TIMES AND BECAUSE SHE WANTED TO GET EXACT NUMBERS OF THE PATIENT'S VITALS THROUGHOUT THE NIGHT; WHEN I EXPLAINED THAT I NEEDED TO CALL HER BACK BECAUSE I ONLY HAD 15 MINUTES LEFT OF MY SHIFT LEFT WITH PATIENTS I STILL HAD TO GIVE CARE TO. MELISSA WAS VERY ANGRY, YELLING CONTINUOUSLY YELLING ON THE PHONE BEFORE SHE HUNG UP. CHARGE NURSE JOSE AWARE.
[2019-12-09 07:02] LABS: ALANINE AMINOTRANSFERASE 29 U/L (12-78); ALBUMIN 1.9 g/dL (3.4-4.8); ASPARTATE AMINOTRANSFERASE 46 U/L (10-37); CALCIUM 8.2 mg/dL (8.4-11.0); CHLORIDE 113 mmol/L (98-107); CREATININE 0.58 mg/dL (0.55-1.30); GLUCOSE 300 mg/dL (70-99); PHOSPHORUS 4.8 mg/dL (2.7-4.5); POTASSIUM 4.2 mmol/L (3.5-5.1); SODIUM SERUM 145 mmol/L (136-145); TOTAL BILIRUBIN 0.5 mg/dL (0.0-1.0); UREA NITROGEN, BLOOD 12 mg/dL (8-21)
[2019-12-09 07:20] LABS: BASOPHILS # (AUTO) 0.2 K/uL (0.0-0.2); BASOPHILS % (AUTO) 0.8 % (0.0-2.0); EOSINOPHILS # (AUTO) 0.2 K/uL (0.0-0.4); EOSINOPHILS % (AUTO) 1.3 % (0.0-4.0); LYMPHOCYTES # (AUTO) 5.8 K/uL (1.0-5.5); LYMPHOCYTES % (AUTO) 30.6 % (20.5-51.5); MEAN CORPUSCULAR HEMOGLOBIN 35 pg (27-31); MEAN CORPUSCULAR HGB CONC 30 % (32-36); MEAN CORPUSCULAR VOLUME 118 fL (79.0-98.0); MONOCYTES # (AUTO) 1.8 K/uL (0.0-1.0); MONOCYTES % (AUTO) 9.4 % (1.7-9.3); NEUTROPHILS # (AUTO) 10.9 K/uL (1.8-7.7); PLATELET COUNT (AUTO) 117 K/uL (130-430); RED CELL DISTRIBUTION WIDTH 27.4 % (9.0-15.0); WHITE BLOOD COUNT (AUTO) 18.8 K/uL (4.8-10.8)
[2019-12-09 07:33] LABS: GFR AFRICAN AMERICAN 142 mL/min (>90)
[2019-12-09 07:34] LABS: ANION GAP < 3 (5-15)
[2019-12-09 08:00] VITALS: BP_SYST 124
--- NOTE | 2019-12-09 08:00 | NUR ---
Initial notes In bed, on bipap, open her eyes and back to sleep. No acute distress noted at this time. Respiratory therapist at bedside. On TPN/LIPIDS.Has generalized edema. Luna cath draining clear yellow urine. bed alarm on. Will monitor.
[2019-12-09 08:01] LABS: C-REACTIVE PROTEIN QUANT 14.4 mg/dL (0-0.5)
[2019-12-09 08:05] LABS: HEMATOCRIT 14.1 % (36-48); HEMOGLOBIN 4.2 g/dL (12.0-16.0)
[2019-12-09 08:06] LABS: NEUTROPHILS % (AUTO) 57.9 % (40.0-70.0)
[2019-12-09] MEDS: ACETYLCYSTEINE 10% 4 ML VIAL (RT) INH SCH ×4 (08:09→19:50)
[2019-12-09] MEDS: LOSARTAN POTASSIUM 25 MG TABLET PO SCH (08:22)
[2019-12-09] MEDS: NEPHROVITE, (FOLIC ACID/VITAMIN B COMP W-C 1 TAB) PO SCH (08:23)
[2019-12-09] MEDS: METOPROLOL TARTRATE 25 MG TABLET PO SCH ×2 (08:23→21:00)
--- NOTE | 2019-12-09 08:30 | NUR ---
DC Planning: s/w Suhail, Geophysical Operator at [facility] re hospice order. Suhail will notify the assigned CM to call back social service dept [phone]. JUAN Carter made aware. Addendum: 12/09/19 at 1418 by Octavio Ocasio RN >> S/W KEVIN/[facility] dept # [phone] re hospice arrangement. KEVIN will consult with his hospice team and will call back for possible transfer pt to network and getting approval for inpatient hospice transfer. >> I spoke with pt's sister/Miguelina, she requested pt transfer to inpatient hospice and agreed to any [place] approved facility. -- KEVIN made aware. Addendum: 12/09/19 at 1635 by Octavio Ocasio RN [facility] dept: kurtis Garsia, coordinator to KEVIN Richards, " Still working on hospice order/arrangement." -- RN Arlin made aware.
[2019-12-09] MEDS: EPOETIN ALFA 10,000 UNITS/ML VIAL SUBCUT SCH (08:31)
[2019-12-09] MEDS: levETIRAcetam 500 MG in NS 100 ML IV SCH ×2 (08:31→22:46)
[2019-12-09] MEDS: ENOXAPARIN SODIUM 40 MG/0.4 ML SYRINGE SUBCUT SCH (08:32)
[2019-12-09] MEDS: THIAMINE HCL 100 MG in NS 50 ML IV SCH (09:26)
[2019-12-09 09:52] LABS: ERYTHROCYTE SEDIMENTATION RATE 117 MM/HR (0-20)
--- NOTE | 2019-12-09 10:17 | NUR ---
Notes- Turned and repositioned. no signs of distress noted. will monitor.
--- NOTE | 2019-12-09 10:30 | NUR ---
Social Service Note: AIRCRAFT ENGINE MECHANIC SUPERVISOR spoke with pt's sister-Lori. Lori states that her son/pt's nephew is the person who has been upset with regards to removing pt's bipap and starting morphine drip. Lori confirmed that she is pt's surrogate decision maker and the person listed on pt's advanced directive. Pt's sister-Lori states that she knows what her sister's wishes are. AIRCRAFT ENGINE MECHANIC SUPERVISOR encouraged Lori to speak to her son/pt's nephew about the plan of care. AIRCRAFT ENGINE MECHANIC SUPERVISOR updated Lori that there is an order for hospice evaluation. AIRCRAFT ENGINE MECHANIC SUPERVISOR is awaiting a call back form [facility] for an update on the status of evaluation order. is also aware and trying to reach [facility]. AIRCRAFT ENGINE MECHANIC SUPERVISOR will remain available for support and will follow up as needed.
--- NOTE | 2019-12-09 11:50 | NUR ---
ROUNDS/CARDIZEM Seen by Dr. Faulkner at bedside. Aware of heart rate. MD stated not to give cardizem IV push at this time. since b/p is pul616/58. will monitor.
[2019-12-09 12:06] VITALS: BP_SYST 112
--- NOTE | 2019-12-09 15:00 | NUR ---
MD rounds Seen by Dr. Faulkner at bedside
--- NOTE | 2019-12-09 15:50 | NUR ---
Notes- No distress noted. tolerating Bipap settings at this time. Will monitor.
[2019-12-09 16:37] VITALS: BP_SYST 110
--- NOTE | 2019-12-09 18:29 | NUR ---
Notes- No change in assessment, pt still unresponsive. No distress noted. will endorse.
--- NOTE | 2019-12-09 20:00 | NUR ---
Opening notes Pt non responsive, does not open eyes, O2 sat 100% on Bipap 50%. TPN/Lipids infusing at ordered rate MARIFER midline. Luna catheter draining to gravity. Will continue to monitor.
[2019-12-09 20:30] VITALS: BP_SYST 108
[2019-12-09] MEDS ORDERED: CALCIUM GLUCONATE IV SCH ×8 (21:00)
[2019-12-09] MEDS ORDERED: INSULIN GLARGINE 100 UNITS/ML 10 ML VIAL SUBCUT SCH (21:00)
[2019-12-09] MEDS ORDERED: TPN PERIPHERAL IV SCH ×8 (21:00)
[2019-12-09] MEDS ORDERED: [UNRECOGNIZED DRUG - OTHER] IV SCH ×8 (21:00)
[2019-12-09] MEDS ORDERED: POTASSIUM CHLORIDE IV SCH ×8 (21:00)
[2019-12-09] MEDS: FAT EMULSIONS 250 ML IV SCH (22:59)
[2019-12-09 23:47] VITALS: BP_SYST 112
--- NOTE | 2019-12-10 | NUR ---
Rounds Pt still obtunded, O2 sat 100% on Bipap 50%. TPN/Lipids infusing at ordered rate MARIFER midline. Luna catheter draining to gravity. To monitor.
--- NOTE | 2019-12-10 00:47 | NUR ---
Pt O2 sat 78%, Per monitoring specialist. Checked BP 71/31, bipap machine alarming. No carotid pulse noted and no O2 sat noted on machine.
--- NOTE | 2019-12-10 01:00 | NUR ---
Pronounced 2 RNs pronounced pt. Frank pupils fixed and dilated, no carotid pulse noted, absent respirations bilateral upon auscultation.
--- NOTE | 2019-12-10 01:19 | NUR ---
Paged Dr. Faulkner Lexa
--- NOTE | 2019-12-10 01:22 | NUR ---
Pt sister Lori [phone] informed of sister's passing. Per sister they have no arrangement. Pt states they will belt picker her belongings in AM.
--- NOTE | 2019-12-10 01:25 | NUR ---
[employer] called Case # [id number]. Not eligible for donor.
--- NOTE | 2019-12-10 01:41 | NUR ---
Second Paged for Lexa Hernández s/w Hugh
--- NOTE | 2019-12-10 02:18 | NUR ---
Dr. Niki Faulkner made aware of pt expiration.
--- NOTE | 2019-12-10 03:00 | NUR ---
Post mortem care rendered Dc'd MARIFER midline and lopez catheter. Belongings at bedside including earrings and cellphone. Called and spoke with Aurora at [facility] [phone] and per Aurora will call back as to what time stake driver will brass pickler body.
--- NOTE | 2019-12-10 04:40 | NUR ---
Sara rep here to picker packer body.
--- NOTE | 2019-12-10 07:07 | NUR ---
Talked to pt's sister Lori in lobby and informed her that [facility] outbound sales representative Gorge took inventory of pt's belongings including her cellphone, collection supervisor and 6 hoop earrings. Lori agreeable.
--- NOTE | 2019-12-10 07:19 | NUR ---
MD CONSULTS LATRICE LUIS ( YELENA), MAXWELL DARBY (ELAINA), ARIANNA (PAKO), AND ERIC (ROHINI DIRECTLY WERE ALL INFORMED OF THE PT'S AT 0100.
== END 2019-12-10 04:45 | disposition expired | DRG 871 ==
LOC: SED 17:57 → STU 19:31 → SMU 12-05 21:33
PROVIDERS: ADMIT Preventive Medicine Preventive Medicine/Occupational Environmental Medicine; ATTEND Preventive Medicine Preventive Medicine/Occupational Environmental Medicine
PROC: 5A09457 Assistance with Respiratory Ventilation, 24-96 Consecutive Hours, Continuous Positive Airway Pressure (ICD-10-PCS; principal; 2019-11-28)
PROC: 5A09357 Assistance with Respiratory Ventilation, Less than 24 Consecutive Hours, Continuous Positive Airway Pressure (ICD-10-PCS; 2019-11-29)
PROC: 0W993ZZ Drainage of Right Pleural Cavity, Percutaneous Approach (ICD-10-PCS; 2019-11-29)
PROC: 5A09457 Assistance with Respiratory Ventilation, 24-96 Consecutive Hours, Continuous Positive Airway Pressure (ICD-10-PCS; 2019-12-04)
PROC: 0W993ZZ Drainage of Right Pleural Cavity, Percutaneous Approach (ICD-10-PCS; 2019-12-06)
PROC: 5A09457 Assistance with Respiratory Ventilation, 24-96 Consecutive Hours, Continuous Positive Airway Pressure (ICD-10-PCS; 2019-12-07)
DX: A41.9 Sepsis, unspecified organism (principal); J18.9 Pneumonia, unspecified organism; J96.21 Acute and chronic respiratory failure with hypoxia; E87.1 Hypo-osmolality and hyponatremia; E87.2 Acidosis; N17.9 Acute kidney failure, unspecified; J91.8 Pleural effusion in other conditions classified elsewhere; D62 Acute posthemorrhagic anemia; D69.6 Thrombocytopenia, unspecified; D89.9 Disorder involving the immune mechanism, unspecified; E11.22 Type 2 diabetes mellitus with diabetic chronic kidney disease; E11.65 Type 2 diabetes mellitus with hyperglycemia; E83.52 Hypercalcemia; E88.09 Other disorders of plasma-protein metabolism, not elsewhere classified; Z20.828 Contact with and (suspected) exposure to other viral communicable diseases; G40.909 Epilepsy, unspecified, not intractable, without status epilepticus; R65.20 Severe sepsis without septic shock; I12.9 Hypertensive chronic kidney disease with stage 1 through stage 4 chronic kidney disease, or unspecified chronic kidney disease; I70.0 Atherosclerosis of aorta; J45.909 Unspecified asthma, uncomplicated; N18.9 Chronic kidney disease, unspecified; Z79.4 Long term (current) use of insulin; Z90.12 Acquired absence of left breast and nipple; Z92.3 Personal history of irradiation; Z85.3 Personal history of malignant neoplasm of breast; Z79.899 Other long term (current) drug therapy
CPT/HCPCS: 32555; 36415; 36600; 70450-TC; 71045; 76604; 80048; 80053; 80185-TC; 80307; 81000-TC; 82150-TC; 82272; 82550-TC; 82607; 82728; 82746; 82803-TC; 82947-TC; 82962; 83540-TC; 83550-TC; 83605; 83690-TC; 83735-TC; 83880; 84100-TC; 84157-TC; 84478-TC; 84484; 85007; 85025; 85027; 85610-TC; 85651-TC; 85730-TC; 86140; 86710; 87040-TC; 87070-TC; 88108; 88305; 88313; 88341; 88342; 88361; 89051-TC; 89060-TC; 93005; 94640; 94660; 94760; 96361; 96365; 96367; 96372; 96375; 99285; C1729; C1751; G0378; J0153; J0456; J0610; J0692; J0696; J0885; J1650; J1815; J1953; J1956; J2060; J2185; J2405; J2543; J2916; J3411; J3475; J3480; J3490; J7030; J7042; J7050; J7060; J7608; J7613; U0003-CS